=== PATIENT | female | born 1945 | race Caucasian/White ===

== ENCOUNTER → 2018-09-15 15:20 | Outpatient (CLI) | payer MEDICARE, SELFPAY ==
--- NOTE | 2018-09-15 15:26 | RAD_ITS ---
STUDY: X-RAY CHEST REASON FOR EXAM: Female, 73 years old. Anterior chest pain and discomfort. TECHNIQUE: PA and lateral chest. COMPARISON: None. FINDINGS: The heart is not enlarged. Lungs are hyperinflated. No focal infiltrates or effusions. No pneumothorax. Degenerative changes of the thoracic spine. Normal visualized thoracic spine. Normal visualized ribs, clavicles, and shoulders. There is no demonstrated abnormality of the visualized soft tissue structures of the upper abdomen. RAD/Chest PA and Lateral IMPRESSION: No acute cardiopulmonary disease. COPD. Electronically Signed: Nehemias Garcia MD at 8:00 EST , Service support ,
== END ==
PROVIDERS: Family Provider Nurse Practitioner; PCP Nurse Practitioner; Referring Provider Nurse Practitioner; Visit Provider Nurse Practitioner
DX: R07.89 Other chest pain (principal)
CPT/HCPCS: 71046

== ENCOUNTER → 2019-08-07 | Outpatient (CLI) | payer MEDICARE, SELFPAY ==
--- NOTE | 2019-08-07 14:56 | BI_ITS ---
MAMMOGRAPHY - BILATERAL SCREENING REASON FOR EXAM: Female, 74 years old. Routine annual screening examination. PERTINENT HISTORY: Non-contributory. TECHNIQUE: Digital bilateral breast andreina (3D mammographic acquisition) in the CC and MLO projections. 2-D mediolateral oblique (MLO) and craniocaudad (CC) views of both breasts were obtained. CAD: Full Field Digital Mammography with Computer Added Detection was performed. COMPARISON: Comparison is made with prior examination dated November 06, 2016. FINDINGS: Breast Composition: There are scattered areas of fibroglandular density. There are no dominant masses or suspicious calcifications. No other significant abnormalities are identified. There has been no significant change since the prior study. BI/SCREEN MAMM (CAD) W/ANDREINA BILAT IMPRESSION: Stable bilateral screening mammogram. Yearly follow-up mammogram recommended. (A) ASSESSMENT CATEGORY: BIRADS Category 1: Negative. A letter regarding these results will be sent to the patient by the facility within 30 days. Approximately 10% of breast cancers are not detected by mammography. A normal mammogram should not delay biopsy of a clinically suspicious abnormality. [id number] Electronically Signed: Darien Gatica, at 10:33 EDT , Service support ,
== END | disposition home or self-care (01) ==
LOC: OPBI 14:55
PROVIDERS: Family Provider Nurse Practitioner; PCP Nurse Practitioner; Referring Provider Nurse Practitioner; Visit Provider Nurse Practitioner
DX: Z12.31 Encounter for screening mammogram for malignant neoplasm of breast (principal)
CPT/HCPCS: 77063; 77067

== ENCOUNTER → 2020-05-24 11:46 | Outpatient (CLI) | payer MEDICARE, SELFPAY ==
--- NOTE | 2020-05-24 11:58 | BD_ITS ---
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 COMPARISON: Comparison is made with prior study dated November 06, 2016. FINDINGS: Lumbar Spine (L1-L4): g/cm2 (0.843) / T-score (-2.7) / Z-score (-1.0) Findings are suggestive of osteoporosis with a high fracture risk. Left Femur Total: g/cm2 (0.630) / T-score (-2.9) / Z-score (-1.3) Left Femoral Neck: g/cm2 (0.630) / T-score (-2.9) / Z-score (-1.1) Right Femur Total: g/cm2 (0.616) / T-score (-3.1) / Z-score (-1.4) Right Femoral Neck: g/cm2 (0.582) / T-score (-3.3) / Z-score (-1.4) The T-Scores on the most recent prior examination were: Lumbar Spine (L1-L4): There has been worsening of bone density since the previous examination. Left Femur Total: which represents a worsening of 5.6%. Right Femur Total: which represents a worsening of 4.8%. BD/Dexa Bone Density Study IMPRESSION: The patient is considered osteoporotic as outlined below according to World Bobby Organization (WHO) criteria with a high fracture risk. There has been worsening of bone density since the previous examination. Reference Information: The T-score is the number of standard deviations above or below the standard which is normal for young adults at their peak bone mineral density. The World Health Organization (WHO) interprets the T-scores as follows: Above -1 Normal bone density Between -1 and -2.5 Osteopenia Equal to / or below -2.5 Osteoporosis As a practical clinical guideline, osteopenia may be graded as follows: Mild -1 through -1.5 Moderate -1.6 through -2.0 Severe -2.1 through -2.4 The Z-score is the number of standard deviations above or below age-matched controls. A Z-score of less than -1.5 would be considered abnormal. References: 1. NIH Osteoporosis and Related Bone Diseases http://www.osteo.org 2. International Society for Clinical Densitometry http://www.iscd.org 3. National Osteoporosis Foundation http://www.nof.org Electronically Signed: aDrien Gatica, at 15:50 EDT , Service support ,
== END ==
PROVIDERS: PCP Nurse Practitioner; Referring Provider Nurse Practitioner; Visit Provider Nurse Practitioner
DX: M81.0 Age-related osteoporosis without current pathological fracture (principal)
CPT/HCPCS: 77080

== ENCOUNTER 2021-01-17 15:19 | Outpatient (RCR) | payer MEDICARE, SELFPAY ==
[2017-10-04 16:49] VITALS: BMI 29.8
[2021-01-17] MEDS: COVID-19 VACC, MRNA(PFIZER)/PF 30 MCG/0.3 ML SYRINGE IM (13:58)
[2021-02-07] MEDS: COVID-19 VACC, MRNA(PFIZER)/PF 30 MCG/0.3 ML SYRINGE IM (14:03)
== END 2021-04-18 23:59 ==
LOC: IMMUN 15:19
PROVIDERS: PCP Nurse Practitioner; Visit Provider Family Medicine
DX: Z23 Encounter for immunization (principal)
CPT/HCPCS: 0001A; 0002A; 91300

== ENCOUNTER 2021-03-27 13:30 | Outpatient (RCR) | payer MEDICARE, SELFPAY ==
--- NOTE | 2021-02-10 13:17 | HP.PTEVAL ---
Patient's Visit Information KENNY VILLASENOR is a 75 year old F referred to Physical Therapy by Tanya Garcia NP-C with a diagnosis of SHOULDER PAIN,NECK PAIN,PRONOUNCED LORDOSIS. Date of Evaluation: 02/10/21 Physical Therapist: Leon Palacios, PT, Cert MDT, OCS - Visit Plan Frequency: 2x /Week Duration: 4 Weeks Plan: PT INTERVENTIONS POSTURAL FLEXABLITY/STRENGTHENING,CERVICAL ROM,SHOULDER ROM AND MODALTIES PRN - Subjective This 75 y/o female presents to physical therapy shoulder and neck pain. Patient has had these symptoms since last January 2020. Loccated bilateral shoulder pain and stiffness neck. Seen RN INTERNAL MEDICINE recommended PT ,MEDS and did x-rays. Aggraveting factors in morning ,lifting [place] ,self hygine. Alleviating factors better wih MEDS. Denies parathesia/tingling. Denies tinnutis/nausea/YAN.Symptoms affects sleeping. Patient has no related symptoms with turning cervical spine Patient symptoms affects QOL and ADLS'.Patient goals to decrease pain. SOCIAL: . VOCATION: not working - Pain Bilateral Shoulder Pain Intensity (Out of 10): 4 Pain Intensity Range: 10 Comment: 07/21 wrstr - Objective POSTURE: rounded shoulders head foward ,MOD thoracic kyphosis. NEURO: REMORS,denies parathesia/tingling,reflexes 1/3 C5-6-7. PALPATION: unremarkable. CERVICAL ROM: flexion min loss,extension severe loss,lateral flexion severe/mod and rotation mod loss. AROM SHOULDER: flexion bilateral 80 degrees,abduction 70 degrees,ER 80 degrees,IR reach to pelvis - Special Tests C/S Radiculapathy - Left Upper limb tension test: Negative C/S Radiculapathy - Right Upper limb tension test: Negative C/S Radiculapathy - Left Spurlings: Negative C/S Radiculapathy - Right Spurlings: Negative C/S Radiculapathy - Left Cervical distraction: Negative C/S Radiculapathy - Right Cervical distraction: Negative Sharp Mary Ann: Negative Vertebral Artery Test: Negative Alar Ligament Test: Negative R Shoulder External Rotation Lag Test - RC Tear: Negative R Shoulder Supine Impingement Test - RC Tear: Negative R Shoulder Lift Off Test - Subscapular Tear: Negative R Shoulder Drop Sign - IS Test: Negative R Shoulder Empty Can - SS: Negative R Shoulder Belly Press - SupScap: Negative R Shoulder Neer - Impingement: Positive R Shoulder Eddy Andre - Impingement: Positive L Shoulder External Rotation Lag Test - RC Tear: Negative L Shoulder Empty Can - SS: Negative L Shoulder Belly Press - SupScap: Negative L Shoulder Neer - Impingement: Positive L Shoulder Eddy Andre - Impingement: Positive L Shoulder Shrug Sign - OA/Adhesive Capsulitis: Positive - Goals Goal 1:: Patient to be I with HEP Goal Time Frame: 4-6 Weeks Goal 2:: Patient to increase ROM shoulder by 5-10 degrees to improve function Goal Time Frame: 4-6 Weeks Goal 3:: Patient imprve cervical ROM for function of recovery Goal Time Frame: 4-6 Weeks Goal 4:: Patient decrease shoulder pain by 50 % or > to improve function Goal Time Frame: 4-6 Weeks Goal 5:: Patient to improve quick dash by 5 points or > to improve function Goal Time Frame: 4-6 Weeks - Rehabilitation Potential Physical Therapy Diagnosis: This patient has bilateral shoulder pain with decrease ROM shoulder from mod thoracic kyphosis ,pain,poor posture and impingement from these deficits thus will need benifit from skilled PT Rehabilitation Potential: Good - Anticipated Interventions Patient/Client Instruction: Educate patient on: Condition, Plan of Care For the Purpose of:: To decrease pain, To increase ROM, To improve muscle performance and motor function, To improve ability of physical actions for home/community/work/leisure, To improve health of tissue, To decrease soft tissue restriction, To increase flexibility/ROM, To improve ability to perform tasks related to life management Therapeutic Exercise to Include: Strength training, Postural training, Flexibilty training, Active ROM, Scapular Strength/Stabilization Comment: SHOULDERS For the Purpose of:: To decrease pain, To increase ROM, To improve muscle performance and motor function, To improve ability to perform ADL's, To increase tolerance to activity/condition/position, To improve performance and independence with ADL's, To improve ability of physical actions for home/community/work/leisure, To improve health of tissue, To decrease soft tissue restriction, To increase flexibility/ROM, To improve ability to perform tasks related to life management TENS: Yes IF ES: Yes Cryotherapy (ice pack, ice massage): Yes Thermo therapy (hot pack): Yes Ultrasound (thermal/non thermal): Yes For the Purpose of:: To decrease pain, To increase ROM, To improve health of tissue, To decrease soft tissue restriction Thank you for the opportunity to evaluate your patient. For Medicare and Medicare HMO plans, please review the plan of care and approve it. It will need to be FAXED BACK to us at [phone] for Medicare purposes. For Medicare only, by signing this I certify the plan of care. Please let me know if there are questions or concerns regarding this plan of care. Physician Signature: Date:
--- NOTE | 2021-03-27 13:34 | HP.PTDCSUM_ITS ---
It has been my pleasure to treat KENNY VILLASENOR referred by Tanya Garcia, PUNCH MACHINE OPERATOR-C, with the diagnosis of SHOULDER PAIN,NECK PAIN,PRONOUNCED LORDOSIS for a total of 6 visit(s). Discharge Date: 03/27/21 Please see the following information for a summary of their discharge status. Subjective: Neck pain is gone, shoulder ROM much better. Shouldrs still hurt some days if sleeps wrong from side to side. Activities pretty normal. Will cotninue to use bands at home and will get 23 weights. [place] doctor next Saturday. Bilateral Shoulder Pain Intensity (Out of 10): 0 % Improvement: 99 Objective/Function: cervical 75 L rotation and 60 r rotation adn 55 ext, no pain. shoulders elevation 140 L and 132 R, normal exteranal rotationa nd symmetrical. IR symmetrical also. Stegth UE symmetrical and 4-. Pt doing much better and progressing nicely and feels like she can take it from here with HEP Goal 1:: Patient to be I with HEP Goal Progress: Goal Met Goal 2:: Patient to increase ROM shoulder by 5-10 degrees to improve function Goal Progress: Goal Met Goal 3:: Patient imprve cervical ROM for function of recovery Goal Progress: Goal Met Goal 4:: Patient decrease shoulder pain by 50 % or > to improve function Goal Progress: Goal Met Goal 5:: Patient to improve quick dash by 5 points or > to improve function Goal Progress: Goal Met Plan: d/c If there are questions or concerns regarding this patient's physical therapy, please feel free to call me at [phone]. Thank you for the referral of this patient. Sincerely, Isaac Elizabeth, DPT, OCS, CSCS
== END 2021-03-27 19:00 | disposition home or self-care (01) ==
LOC: PT 13:30
PROVIDERS: PCP Nurse Practitioner; Referring Provider Nurse Practitioner; Visit Provider Nurse Practitioner
DX: M40.50 Lordosis, unspecified, site unspecified (principal); M25.511 Pain in right shoulder; M54.2 Cervicalgia
CPT/HCPCS: 97110; 97162; 97164

== ENCOUNTER 2022-03-13 03:00 | Inpatient (IN) | payer MEDICARE, SELFPAY ==
[2022-03-13] VITALS (16 sets, daily range): BP systolic 108–167; BP diastolic 55–97; PULSE 69–102; RESP 16–18; TEMP 36.1–37.3; O2SAT 94–100; BMI 28.5; BMI 23.8
--- NOTE | 2022-03-13 03:18 | EKG12_ITS ---
Test Reason : DYSRHYTHMIA Blood Pressure : / mmHG Vent. Rate : 070 BPM Atrial Rate : 070 BPM P-R Int : 202 ms QRS Dur : 072 ms QT Int : 446 ms P-R-T Axes : 068 013 071 degrees QTc Int : 481 ms Normal sinus rhythm Normal ECG Confirmed by HIGINIO CARDENAS, SHAD ([id number]), photo editor MARISSA TARIQ ([id number]) on 03/14/2022 9:44:55 AM Referred By: JACQUELINE Confirmed By:SHAD SYLVESTER MD
--- NOTE | 2022-03-13 03:18 | RAD_ITS ---
STUDY: X-RAY CHEST REASON FOR EXAM: Female, 76 years old. preop TECHNIQUE: COMPARISON: None. FINDINGS: The lungs are clear and expanded. There is no demonstrated pleural abnormality. Normal size heart. Normal mediastinum and ke. Normal visualized pulmonary arteries. Normal visualized aortic arch and descending thoracic aorta. Normal visualized thoracic spine. Normal visualized ribs, clavicles, and shoulders. There is no demonstrated abnormality of the visualized soft tissue structures of the upper abdomen. RAD/Chest 1 View (Portable) IMPRESSION: Normal x-ray examination of the chest. Electronically Signed: Jeremie Lund MD at 4:33 EDT ,
--- NOTE | 2022-03-13 03:18 | RAD_ITS ---
STUDY: X-RAY - LEFT SHOULDER REASON FOR EXAM: Female, 76 years old. Trauma TECHNIQUE: 3 view(s) of the shoulder. COMPARISON: Comparison is made with prior study dated 01/13/2021. FINDINGS: There is mild degenerative arthrosis of the glenohumeral articulation. Normal acromioclavicular joint. Normal acromion. There is nondisplaced fracture through the subcapital region of the left humerus with cephalic migration of the distal fracture fragment. Soft tissue swelling. Normal visualized pulmonary apex. RAD/Shoulder min 2 Views IMPRESSION: Transverse fracture through the subcapital region of the proximal left humerus with cephalic migration of the distal fracture fragment. Electronically Signed: Darien Gatica MD at 9:15 EDT ,
--- NOTE | 2022-03-13 03:18 | CT_ITS ---
STUDY: CT BRAIN WITHOUT CONTRAST REASON FOR EXAM: Female, 76 years old. fall RADIATION DOSAGE (If Supplied By Facility): CTDIvol = ( 44.99 ) mGy, DLP = ( 846.73 ) mGycm TECHNIQUE: Transaxial CT imaging of the brain was performed without administration of intravenous contrast material. Individualized dose optimization techniques were used for this CT. COMPARISON: No relevant priors. FINDINGS: Normal soft tissue structures. Normal calvarium. Normal size ventricles and extra-axial spaces for the patient''s age. Normal white matter tracts of the cerebral hemispheres. Normal basal ganglia and thalami. Normal brainstem. Normal cerebellum. There is no intracranial hemorrhage. There are no findings of an acute ischemic infarction. Normal visualized paranasal sinuses. CT/Brain/Head without Contrast IMPRESSION: Normal unenhanced CT scan of the brain. Electronically Signed: Jeremie Lund MD at 4:23 EDT ,
--- NOTE | 2022-03-13 03:18 | RAD_ITS ---
STUDY: X-RAY - LEFT WRIST REASON FOR EXAM: Female, 76 years old. trauma TECHNIQUE: 3 view(s) of the wrist were obtained. COMPARISON: None. FINDINGS: There is chronic fracture of the distal radius with the fracture line entering the articular surface. There is a fragment of the articular surface measuring 1.2 cm. This is off from the main portion of the radius. There is a chip fracture of the ulnar styloid process. Normal visualized distal radius and ulna. Normal radiocarpal articulation. Normal distal radioulnar articulation. Normal carpal bones. Normal carpal articulations. Normal carpometacarpal articulation of the thumb. Normal second through fifth carpometacarpal articulations. Normal visualized metacarpal bones. The soft tissue structures are unremarkable. RAD/Wrist min 3 Views IMPRESSION: Fracture of the distal radius with intra-articular extension. Small chip fracture of the ulnar styloid process. Electronically Signed: Jeremie Lund MD at 4:50 EDT ,
--- NOTE | 2022-03-13 03:18 | RAD_ITS ---
STUDY: X-RAY - PELVIS AND LEFT HIP REASON FOR EXAM: Female, 76 years old. trauma TECHNIQUE: 3 views of the pelvis and hip. COMPARISON: None. FINDINGS: There is a non-specific bowel gas pattern. Normal visualized soft tissue structures. Normal bilateral iliac wings, sacroiliac joints and visualized sacrum. Normal bilateral superior and inferior pubic rami. Normal pubic symphysis. Normal bilateral ischial tuberosities. Normal visualized femoral head there is an intertrochanteric fracture of the left hip. Normal hip joint. RAD/HIP, UNI W/ Pelvis 2-3 Views IMPRESSION: Intertrochanteric fracture of the left hip. Electronically Signed: Jeremie Lund MD at 6:19 EDT ,
--- NOTE | 2022-03-13 03:21 | ED.VIS.FALL ---
HPI HPI - Fall History of Present Illness Chief Complaint: Fall Narrative Narrative: Patient sustained a mechanical fall about a half an hour ago, she tripped in her shoelaces. She did hit the left side of her head, her shoulder and left wrist hurt, her main complaint is left hip pain. She was brought in to the emergency department by paramedics. No loss consciousness, she denies any chest injury. She has no neck pain or back pain. [facility] Medical History Hypertension Hypothyroidism Osteoporosis Home Medications levothyroxine 75 mcg PO MOTUTHFRSA 05/31/14 [History Last Taken Unknown] lisinopril 2.5 mg PO DAILY 02/02/17 [History Last Taken Unknown] acetaminophen-codeine 1 - 2 tab PO Q6H PRN #20 tablet 10/04/17 [Rx Last Taken Unknown] diltiazem HCl [Cardizem] 120 mg PO BID 10/04/17 [History Last Taken Unknown] Allergy/AdvReac Type Severity Reaction Status Date / Time naproxen sodium [From Aleve] Allergy WENT OUT Verified 03/13/22 03:05 COLD Penicillins Allergy Rash Verified 03/13/22 03:05 Social History Smoking Status: Current every day smoker tobacco type: e-cigarettes ROS ROS ED ROS Narrative Past medical history: Reviewed, significant for hypertension and hypothyroidism Medications: Reviewed Social history: Noncontributory Review of systems General: Head injury, no loss of consciousness HEENT: No facial injury Neck: No neck pain Cardiovascular: Patient denies any chest pain or palpitations Chest wall: No chest wall contusions Respiratory: There is no shortness of breath GI: There is no nausea vomiting diarrhea or abdominal pain, no abdominal wall contusions Skin: No lacerations or abrasions Neurological: Patient has no memory loss, confusion, or any focal weakness Psychiatric: No recent behavioral changes Back: No back pain, no problems with ambulation Musculoskeletal: Left wrist, left shoulder, left hip injury All other systems are reviewed and normal EXAM Physical Exam Narrative Exam Narrative: Physical exam Vitals reviewed General: Patient appears uncomfortable HEENT: No facial injury Head: Left temporal tenderness but there is no ecchymoses, no contusion. No hematoma. Eyes: Extraocular movements intact Neck: No C-spine tenderness with full range of motion Heart: Regular rate normal pulses Chest wall: No chest wall pain Lungs clear lungs bilaterally with normal inspiration and expiration without tachypnea GI: Abdomen is soft and nontender there is no mass no guarding no abdominal wall contusion : Stable pelvis Musculoskeletal: Patient has tenderness over the left wrist, mostly distal radius region, no obvious deformity. She is got left shoulder pain with no deformity, her left hip is shortened and externally rotated quite painful but even attempt to logroll. Neurovascularly intact distally. Skin: No abrasions or laceration Neurological: Patient is alert and oriented with no focal deficits Const Vital Signs: 03/13/22 03:00 03/13/22 03:07 Temperature 97.3 F L Temperature Source Temporal Pulse Rate 69 Respiratory Rate 18 Respiratory Effort Normal Non-Labored Respiratory Depth Normal Respiratory Pattern Normal Pulse Ox 99 Oxygen Delivery Method Room Air Room Air MDM MDM MDM Narrative Medical decision making narrative: Patient has a proximal humerus fracture, distal radius fracture, hip fracture, I called orthopedics patient will be admitted to medicine. I splinted the Colles' fracture, I talked to Ortho it is likely that she may need to go to the OR today therefore I will make her n.p.o. Lab Data Labs: Laboratory Results - last 24 hr 03/13/22 03/13/22 03:14 03:14 WBC 9.3 RBC 4.28 Hgb 13.0 Hct 38.7 MCV 90.4 MCH 30.4 MCHC 33.6 RDW Std Deviation 41.5 RDW Coeff of Marcela 12.6 Plt Count 327 MPV 10.1 Immature Gran % (Auto) 0.200 Neut % (Auto) 53.4 Lymph % (Auto) 38.9 Caroline % (Auto) 5.8 Eos % (Auto) 1.3 Baso % (Auto) 0.4 Absolute Neuts (auto) 5.0 Absolute Lymphs (auto) 3.62 Nucleated RBC % 0 Sodium 136 Potassium 3.9 Chloride 101 Carbon Dioxide 26.0 Anion Gap 9 BUN 11 Creatinine 0.87 Estim Creat Clear Calc 44.19 Est GFR (MDRD) Af Amer 82 Est GFR (MDRD) Non-Af 68 BUN/Creatinine Ratio 12.7 Glucose 138 H Calcium 8.9 Total Bilirubin 0.30 AST 16 ALT 18 Alkaline Phosphatase 89 Total Protein 7.6 Albumin 3.6 Globulin 4.0 Albumin/Globulin Ratio 0.9 Radiography Diagnostic Testing: X-ray hip read by me shows an intertrochanteric fracture with displacement X-ray wrist read by me shows a distal radius fracture without significant loss of height or dorsal angulation X-ray shoulder read by me shows a proximal humerus fracture without displacement X-ray chest read by me as normal EKG Initial EKG: Comments: Normal sinus rhythm with a rate of 70. Normal [place] and QTc intervals. Nonspecific ST changes in the lateral precordial leads. Otherwise normal EKG. Interpreted by emergency doctor Procedures Upper Extremity Splints Upper Extremity Splint: Orthoglass and - (Anterior posterior splint) Splint Fabrication: Pre-fabricated Location: Left Discharge Plan Triage Chief Complaint: Fall ED Provider: Pedro Hassan Dx/Rx/DC Orders Clinical Impression: Closed hip fracture, Colles' fracture, Fracture of proximal end of humerus, Fall Prescriptions: No Action levothyroxine 25 MCG tablet 75 mcg PO MOTUTHFRSA RF: 0 lisinopril 2.5 MG tablet 2.5 mg PO DAILY RF: 0 diltiazem HCl [Cardizem] 120 MG tablet 120 mg PO BID RF: 0 acetaminophen-codeine 1 TABLET tablet 1 - 2 tab PO Q6H PRN (Reason: Pain) Qty: 20 RF: 0 Primary Care Provider: Tanya Garcia NP Referrals: Tanya Garcia NP, GAS USAGE METER CLERK-C [Primary Care Provider] - Disposition Disposition: Acute Care Hospital [facility]
[2022-03-13] MEDS: Morphine 2 MG/ML Syringe IV (03:25)
[2022-03-13] MEDS: Ondansetron 4 MG/2 ML Vial IV (03:25)
[2022-03-13 03:47] LABS: Absolute Lymphocyte Count 3.62 X10^3/uL (0.83-4.51); Basophil# 0.04 X10^3/uL; Basophil% 0.4 % (0-1); Eosinophil# 0.12 X10^3/uL; Eosinophils% 1.3 % (0-5); Hematocrit 38.7 % (37-47); Lymphocyte # 3.62 X10^3/ul (0.83-4.51); Lymphocyte % 38.9 % (19-41); Mean Corp Hgb Conc 33.6 g/dL (32-36); Mean Corpuscular Hgb 30.4 pg (27.0-32.0); Mean Corpuscular Volume 90.4 fL (81-99); Mean Platelet Vol. 10.1 fl (6.2-12.0); Monocyte# 0.54 X10^3/uL; Monocyte% 5.8 % (0-10); NRBC Flagged by Analyzer 0 % (0-5); Neutrophil # 4.97 X10^3/uL (2.7-7.7); Neutrophil % 53.4 % (47-70); Platelet Count 327 K/mm3 (150-450); RBC Distribution Width CV 12.6 % (11.6-14.6); RBC Distribution Width SD 41.5 fl (35.1-43.9); Red Blood Count 4.28 M/mm3 (4.2-5.4); White Blood Count 9.3 K/mm3 (4.4-11.0)
[2022-03-13 03:59] LABS: ALB/GLOB Ratio 0.9 RATIO (0.9-2.4); AST(SGOT) 16 U/L (15-37); Alanine Aminotransfer ALT/SGPT 18 U/L (13-56); Albumin, Serum 3.6 g/dL (3.2-5.0); Alkaline Phosphatase 89 U/L (45-117); Anion Gap 9 (5-15); BUN 11 mg/dL (7-18); BUN/Creat Ratio 12.7 RATIO (10-20); Calcium,Total 8.9 mg/dL (8.5-10.1); Chloride 101 mmol/L (98-107); Creatinine, Serum 0.87 mg/dL (0.55-1.02); EST Glomerular Filtration Rate 68 mL/min (>60); Est Glom Filt Rate - Afr Amer 82 mL/min (>60); Estimated Creatinine Clearance 44.19 ml/min; Glucose 138 mg/dL (74-106); Potassium 3.9 mmol/L (3.5-5.1); Protein, Total 7.6 g/dL (6.4-8.2); Sodium Level 136 mmol/L (136-145)
[2022-03-13] MEDS: Morphine 4 MG/ML Syringe IV (04:19)
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
[2022-03-13] MEDS: 0.9% Normal Saline 1,000 ML 75 ML IV ×2 (05:30→21:54)
[2022-03-13 07:28] LABS: Absolute Lymphocyte Count 0.83 X10^3/uL (0.83-4.51); Absolute Neutrophil Count 9.3 X10^3/uL (2.0-7.7); Basophil# 0.03 X10^3/uL; Basophil% 0.3 % (0-1); Eosinophil# 0.01 X10^3/uL; Eosinophils% 0.1 % (0-5); Hematocrit 37.5 % (37-47); Hemoglobin 12.2 g/dL (12.0-15.0); Lymphocyte # 0.83 X10^3/ul (0.83-4.51); Lymphocyte % 7.7 % (19-41); Mean Corp Hgb Conc 32.5 g/dL (32-36); Mean Corpuscular Hgb 30.4 pg (27.0-32.0); Mean Corpuscular Volume 93.5 fL (81-99); Mean Platelet Vol. 10.1 fl (6.2-12.0); Monocyte# 0.56 X10^3/uL; Monocyte% 5.2 % (0-10); NRBC Flagged by Analyzer 0 % (0-5); Neutrophil # 9.31 X10^3/uL (2.7-7.7); Neutrophil % 86.2 % (47-70); Platelet Count 262 K/mm3 (150-450); RBC Distribution Width CV 12.5 % (11.6-14.6); RBC Distribution Width SD 43.4 fl (35.1-43.9); Red Blood Count 4.01 M/mm3 (4.2-5.4); White Blood Count 10.8 K/mm3 (4.4-11.0)
[2022-03-13 07:52] LABS: ALB/GLOB Ratio 0.8 RATIO (0.9-2.4); AST(SGOT) 580 U/L (15-37); Alanine Aminotransfer ALT/SGPT 299 U/L (13-56); Albumin, Serum 3.1 g/dL (3.2-5.0); Alkaline Phosphatase 120 U/L (45-117); Anion Gap 7 (5-15); BUN 11 mg/dL (7-18); BUN/Creat Ratio 11.4 RATIO (10-20); Calcium,Total 8.7 mg/dL (8.5-10.1); Chloride 104 mmol/L (98-107); Creatinine, Serum 0.96 mg/dL (0.55-1.02); EST Glomerular Filtration Rate 60 mL/min (>60); Est Glom Filt Rate - Afr Amer 72 mL/min (>60); Estimated Creatinine Clearance 40.05 ml/min; Globulin 3.8 g/dL (2.2-4.2); Glucose 168 mg/dL (74-106); Potassium 4.4 mmol/L (3.5-5.1); Protein, Total 6.9 g/dL (6.4-8.2); Sodium Level 136 mmol/L (136-145)
[2022-03-13 08:00] LABS: International Normalized Ratio 1.1; Prothrombin Time (Protime)PT. 13.5 SECONDS (11.7-14.9)
[2022-03-13] MEDS: 0.9% Saline Lock 10 ML Syringe IV ×2 (08:02→13:48)
[2022-03-13] MEDS: HYDROmorphone 0.5 MG/0.5 ML SYRINGE IV (08:02)
--- NOTE | 2022-03-13 08:04 | CONS.ORTHO ---
HPI Consult Data Date of Consult: 03/13/22 HPI Narrative HPI Narrative: KENNY VILLASENOR, is a 76 F who presents after mechanical fall around 0200 this morning after she got up out of bed when her [place] was barking. She reports that she tripped over something while she was walking causing her to fall onto her left side. She states she did hit her head on an armrest of a leather chair on the way down. She noted immediate pain in her left hip as well as left shoulder and left wrist. She denies any numbness or tingling. Denies any loss of consciousness, syncopal or presyncopal symptoms, neck pain. She states she typically uses a front wheeled walker at home to ambulate. She denies any antecedent left hip, groin pain. Reports bilateral knee osteoarthritis history. She denies any antecedent left wrist or left shoulder pain. Patient lives at home with her daughter who is working cage shift manager at time of injury, but arrived home approximately 15 minutes after the fall to find her mother on the ground. Patient was brought to [facility] and evaluated in the emergency department. CT scan of her brain was benign. X-rays of the left hip revealed a left intertrochanteric proximal femur fracture. Left wrist x-rays revealed a displaced, intra-articular distal radius fracture. Left shoulder films revealed a four-part proximal humerus fracture. She was subsequently admitted to the hospital by the hospitalist service. Orthopedics was subsequently consulted for surgical recommendations. [facility] Medical History Hypertension Hypothyroidism Osteoporosis Home Medications levothyroxine 75 mcg PO MOTUTHFRSA 05/31/14 [History Last Taken Unknown] lisinopril 2.5 mg PO DAILY 02/02/17 [History Last Taken Unknown] acetaminophen-codeine 1 - 2 tab PO Q6H PRN #20 tablet 10/04/17 [Rx Last Taken Unknown] diltiazem HCl [Cardizem] 120 mg PO BID 10/04/17 [History Last Taken Unknown] Allergy/AdvReac Type Severity Reaction Status Date / Time naproxen sodium [From Aleve] Allergy WENT OUT Verified 03/13/22 03:05 COLD Penicillins Allergy Rash Verified 03/13/22 03:05 Social History Smoking Status: Current every day smoker tobacco type: e-cigarettes ROS ROS Narrative 12 point review of systems obtained, negative unless otherwise noted in HPI. Vital Signs Vital Signs Vital Signs: 03/13/22 03:00 03/13/22 03:07 03/13/22 04:22 Temperature 97.3 F L Temperature Source Temporal Pulse Rate 69 69 Pulse Strength Respiratory Rate 18 18 Respiratory Effort Normal Non-Labored Respiratory Depth Normal Respiratory Pattern Normal Blood Pressure 131/56 H Blood Pressure Mean 81 Blood Pressure Source Blood Pressure Position Blood Pressure Location Pulse Ox 99 98 Oxygen Delivery Method Room Air Room Air Room Air 03/13/22 04:51 03/13/22 05:49 03/13/22 06:09 Temperature 98 F 99.0 F Temperature Source Temporal Oral Pulse Rate 77 91 Pulse Strength Respiratory Rate 17 17 Respiratory Effort Normal Non-Labored Respiratory Depth Normal Respiratory Pattern Normal Blood Pressure 140/90 H 146/76 H Blood Pressure Mean 106 99 Blood Pressure Source Monitor Blood Pressure Position Semi-Fowlers Blood Pressure Location Right Arm Pulse Ox 94 100 Oxygen Delivery Method Room Air Room Air Room Air 03/13/22 07:47 03/13/22 07:53 Temperature Temperature Source Pulse Rate Pulse Strength Normal (2+) Respiratory Rate Respiratory Effort Normal Non-Labored Respiratory Depth Normal Respiratory Pattern Normal Blood Pressure Blood Pressure Mean Blood Pressure Source Blood Pressure Position Blood Pressure Location Pulse Ox Oxygen Delivery Method Room Air Weight Weight: 130 lb Body Mass Index (BMI) 23.8 Physical Exam Narrative General -A&Ox3, NAD, appears stated age. Vital signs stable, afebrile. Respiratory -normal work of breathing, no intercostal retractions. CV -pulses regular, brisk capillary refill ?4 limbs. Abdomen-soft, nontender, nondistended. No guarding, rigidity, rebound tenderness. Musculoskeletal/neurologic -full range of motion nontender throughout right upper extremity, right lower extremity with full sensation and strength in all dermatomes and myotomes. No midline cervical tenderness. Left upper extremity-no obvious deformity. Pain with palpation and limited rotation of the left proximal humerus. Axillary nerve function appears intact to sensation and limited firing of the deltoid. Sensation intact to light touch in the left hand median, ulnar, superficial branch radial nerve distributions. Cardinal motions of the left hand are intact. Short arm splint is in place to the left wrist. Elbow is nontender. Left lower extremity-no obvious deformity. Pain with logroll of the left lower extremity. Nontender throughout the left knee femoral shaft, tibial shaft and left foot/ankle. Brisk capillary refill. Sensation intact light touch L3-S1 dermatomes. DF, PF, EHL intact. DP, PT 2+. Pelvis is stable, nontender. Skin is intact without lacerations, abrasions. No ecchymosis noted. Lab / Micro Data Result Diagrams: 03/13/22 07:20 03/13/22 07:20 Labs: Laboratory Results - last 24 hr 03/13/22 03:14: WBC 9.3, RBC 4.28, Hgb 13.0, Hct 38.7, MCV 90.4, MCH 30.4, MCHC 33.6, RDW Std Deviation 41.5, RDW Coeff of Marcela 12.6, Plt Count 327, MPV 10.1, Immature Gran % (Auto) 0.200, Neut % (Auto) 53.4, Lymph % (Auto) 38.9, [place] % (Auto) 5.8, Eos % (Auto) 1.3, Baso % (Auto) 0.4, Absolute Neuts (auto) 5.0, Absolute Lymphs (auto) 3.62, Nucleated RBC % 0 03/13/22 03:14: Sodium 136, Potassium 3.9, Chloride 101, Carbon Dioxide 26.0, Anion Gap 9, BUN 11, Creatinine 0.87, Estim Creat Clear Calc 44.19, Est GFR (MDRD) Af Amer 82, Est GFR (MDRD) Non-Af 68, BUN/Creatinine Ratio 12.7, Glucose 138 H, Calcium 8.9, Total Bilirubin 0.30, AST 16, ALT 18, Alkaline Phosphatase 89, Total Protein 7.6, Albumin 3.6, Globulin 4.0, Albumin/Globulin Ratio 0.9 03/13/22 07:20: WBC 10.8, RBC 4.01 L, Hgb 12.2, Hct 37.5, MCV 93.5, MCH 30.4, MCHC 32.5, RDW Std Deviation 43.4, RDW Coeff of Marcela 12.5, Plt Count 262, MPV 10.1, Immature Gran % (Auto) 0.500, Neut % (Auto) 86.2 H, Lymph % (Auto) 7.7 L, [place] % (Auto) 5.2, Eos % (Auto) 0.1, Baso % (Auto) 0.3, Absolute Neuts (auto) 9.3 H, Absolute Lymphs (auto) 0.83, Nucleated RBC % 0 03/13/22 07:20: PT 13.5, INR 1.1 03/13/22 07:20: Sodium 136, Potassium 4.4, Chloride 104, Carbon Dioxide 25.0, Anion Gap 7, BUN 11, Creatinine 0.96, Estim Creat Clear Calc 40.05, Est GFR (MDRD) Af Amer 72, Est GFR (MDRD) Non-Af 60, BUN/Creatinine Ratio 11.4, Glucose 168 H, Calcium 8.7, Total Bilirubin 0.60, AST 580 H, ALT 299 H, Alkaline Phosphatase 120 H, Total Protein 6.9, Albumin 3.1 L, Globulin 3.8, Albumin/Globulin Ratio 0.8 L Radiology Impression Brain CT 03/13/22 03:18 IMPRESSION: Normal unenhanced CT scan of the brain. Electronically Signed: Jeremie Lund MD at 4:23 EDT Reading Location ID and State: [facility] / [place] Tel , Service support , Chest X-Ray 03/13/22 03:18 IMPRESSION: Normal x-ray examination of the chest. Electronically Signed: Jeremie Lund MD at 4:33 EDT Reading Location ID and State: [facility] / [place] Tel , Service support , Hip/Pelvis X-Ray 03/13/22 03:18 IMPRESSION: Intertrochanteric fracture of the left hip. Electronically Signed: Jeremie Lund MD at 6:19 EDT , Wrist X-Ray 03/13/22 03:18 IMPRESSION: Fracture of the distal radius with intra-articular extension. Small chip fracture of the ulnar styloid process. Electronically Signed: Jeremie Lund MD at 4:50 EDT , Assessment & Plan Assessment/Plan (1) Closed hip fracture: PLAN: Patient sustained a left intertrochanteric proximal femur fracture. -Closed, neurovascularly intact -Recommending surgical intervention in the form of left femur cephalomedullary nailing -I discussed the procedure-its risks, benefits and alternative. Risks include but are not limited to bleeding, infection, loss of life or limb, risk of anesthesia, persistent pain or disability, need for additional surgery, nonunion, malunion, failure of orthopedic hardware, neurovascular injury, DVT or PE. Patient expressed understanding these risks and wished proceed with surgery. -Maintenance IV fluids, clear liquid diet n.p.o. at 4 hours prior to surgery. Plan for surgery later on this afternoon. -Type and screen -2 g Ancef on-call to the OR -Bedrest, heel protectors (2) Colles' fracture: PLAN: Plan for nonoperative management at this time. Dorsal angulation is noted on emergency department films. In hopes to manage nonoperatively definitively, I would recommend closed reduction while patient is under anesthesia for her left hip fracture. We discussed management at length and she agreed to proceed with close reduction of her left wrist at time of left hip surgery. (3) Fracture of proximal end of humerus: PLAN: Plan for initial nonoperative management of the left proximal humerus fracture. Plan for serial x-rays over the coming weeks. We will apply a sling when the patient is able to bear weight on her left hip after surgery. Patient will need a one-sided walker. Anticipate will need placement following surgery due to limited use and nonweightbearing of her left upper extremity. Thank you for this consultation. Please do not hesitate if any questions or concerns arise.
[2022-03-13] MEDS: Senna/Docusate Sodium 1 Tablet 2 TABLET PO ×2 (08:59→21:55)
[2022-03-13] MEDS: Acetaminophen 500 MG Tablet 1000 MG PO ×3 (08:59→21:55)
[2022-03-13 09:56] LABS: ALB/GLOB Ratio 0.9 RATIO (0.9-2.4); AST(SGOT) 838 U/L (15-37); Alanine Aminotransfer ALT/SGPT 478 U/L (13-56); Albumin, Serum 3.1 g/dL (3.2-5.0); Alkaline Phosphatase 121 U/L (45-117); Anion Gap 8 (5-15); BUN 12 mg/dL (7-18); BUN/Creat Ratio 13.4 RATIO (10-20); Calcium,Total 8.3 mg/dL (8.5-10.1); Chloride 102 mmol/L (98-107); Creatinine, Serum 0.89 mg/dL (0.55-1.02); EST Glomerular Filtration Rate 65 mL/min (>60); Est Glom Filt Rate - Afr Amer 79 mL/min (>60); Globulin 3.6 g/dL (2.2-4.2); Glucose 154 mg/dL (74-106); Potassium 4.4 mmol/L (3.5-5.1); Protein, Total 6.7 g/dL (6.4-8.2); Sodium Level 136 mmol/L (136-145)
--- NOTE | 2022-03-13 11:03 | PN.HOSP_ITS ---
Subjective Subjective Patient seen and examined. She had no active complaints and pain was fairly well controlled. She is for surgery by orthopedics later today. Review of systems otherwise negative. Objective Data Objective Data Vital Signs: Vital Signs Temp Pulse Resp BP Pulse Ox 98.6 F 86 16 146/78 H 100 03/13/22 10:00 03/13/22 10:00 03/13/22 10:00 03/13/22 10:00 03/13/22 10:00 Oxygen Delivery Method Room Air Weight: 130 lb Body Mass Index (BMI) 23.8 Lab / Micro Data Result Diagrams: 03/13/22 07:20 03/13/22 08:50 Labs: Laboratory Results - last 24 hr 03/13/22 03:14: WBC 9.3, RBC 4.28, Hgb 13.0, Hct 38.7, MCV 90.4, MCH 30.4, MCHC 33.6, RDW Std Deviation 41.5, RDW Coeff of Marcela 12.6, Plt Count 327, MPV 10.1, Immature Gran % (Auto) 0.200, Neut % (Auto) 53.4, Lymph % (Auto) 38.9, [place] % (Auto) 5.8, Eos % (Auto) 1.3, Baso % (Auto) 0.4, Absolute Neuts (auto) 5.0, Absolute Lymphs (auto) 3.62, Nucleated RBC % 0 03/13/22 03:14: Sodium 136, Potassium 3.9, Chloride 101, Carbon Dioxide 26.0, Anion Gap 9, BUN 11, Creatinine 0.87, Estim Creat Clear Calc 44.19, Est GFR (MDRD) Af Amer 82, Est GFR (MDRD) Non-Af 68, BUN/Creatinine Ratio 12.7, Glucose 138 H, Calcium 8.9, Total Bilirubin 0.30, AST 16, ALT 18, Alkaline Phosphatase 89, Total Protein 7.6, Albumin 3.6, Globulin 4.0, Albumin/Globulin Ratio 0.9 03/13/22 03:14: Blood Type B POSITIVE, Antibody Screen NEGATIVE 03/13/22 07:20: WBC 10.8, RBC 4.01 L, Hgb 12.2, Hct 37.5, MCV 93.5, MCH 30.4, MCHC 32.5, RDW Std Deviation 43.4, RDW Coeff of Marcela 12.5, Plt Count 262, MPV 10.1, Immature Gran % (Auto) 0.500, Neut % (Auto) 86.2 H, Lymph % (Auto) 7.7 L, [place] % (Auto) 5.2, Eos % (Auto) 0.1, Baso % (Auto) 0.3, Absolute Neuts (auto) 9.3 H, Absolute Lymphs (auto) 0.83, Nucleated RBC % 0 03/13/22 07:20: PT 13.5, INR 1.1 03/13/22 07:20: Sodium 136, Potassium 4.4, Chloride 104, Carbon Dioxide 25.0, Anion Gap 7, BUN 11, Creatinine 0.96, Estim Creat Clear Calc 40.05, Est GFR (MDRD) Af Amer 72, Est GFR (MDRD) Non-Af 60, BUN/Creatinine Ratio 11.4, Glucose 168 H, Calcium 8.7, Total Bilirubin 0.60, AST 580 H, ALT 299 H, Alkaline Phosphatase 120 H, Total Protein 6.9, Albumin 3.1 L, Globulin 3.8, Albumin/Gl obulin Ratio 0.8 L 03/13/22 08:50: Sodium 136, Potassium 4.4, Chloride 102, Carbon Dioxide 26.0, Anion Gap 8, BUN 12, Creatinine 0.89, Estim Creat Clear Calc 43.20, Est GFR (MDRD) Af Amer 79, Est GFR (MDRD) Non-Af 65, BUN/Creatinine Ratio 13.4, Glucose 154 H, Calcium 8.3 L, Total Bilirubin 0.70, AST 838 H, ALT 478 H, Alkaline Phosphatase 121 H, Total Protein 6.7, Albumin 3.1 L, Globulin 3.6, Albumin/Globulin Ratio 0.9 Radiography Diagnostic Testing: Radiology Impression Brain CT 03/13/22 03:18 IMPRESSION: Normal unenhanced CT scan of the brain. Electronically Signed: Jeremie Lund MD at 4:23 EDT , Chest X-Ray 03/13/22 03:18 IMPRESSION: Normal x-ray examination of the chest. Electronically Signed: Jeremie Lund MD at 4:33 EDT , Hip/Pelvis X-Ray 03/13/22 03:18 IMPRESSION: Intertrochanteric fracture of the left hip. Electronically Signed: Jeremie Lund MD at 6:19 EDT , Shoulder X-Ray 03/13/22 03:18 IMPRESSION: Transverse fracture through the subcapital region of the proximal left humerus with cephalic migration of the distal fracture fragment. Electronically Signed: Darien Gatica MD at 9:15 EDT , Wrist X-Ray 03/13/22 03:18 IMPRESSION: Fracture of the distal radius with intra-articular extension. Small chip fracture of the ulnar styloid process. Electronically Signed: Jeremie Lund MD at 4:50 EDT Reading Location ID and State: [facility] / [place] Tel , Service support , Physical Exam Const alert, oriented x3 and no apparent distress Exam Limitations: no limitations HEENT head/scalp atraumatic, moist oral mucous membranes and oropharynx normal Head and Scalp: normocephalic Eyes PERRL, EOMs intact bilaterally and conjunctivae normal Neck no lymphadenopathy, supple and no JVD Resp normal respiratory effort, no retractions, no use of accessory muscles and clear to auscultation bilaterally Cardio regular rate, regular rhythm, S1 normal heart sound, S2 normal heart sound and no murmurs GI normal to inspection, nondistended, normoactive bowel sounds, soft to palpation, non-tender and non-distended Extremity Extremity Narrative: LLE shortened and externally rotated, LUE forearm wrapped in bandage Peripheral Pulses: Yes pulses 2+ throughout Skin no rashes or lesions noted Neuro oriented x3 and CN's II-XII intact bilaterally Sensorium / Orientation: awake and alert Psych affect normal Assessment & Plan Assessment/Plan (1) Closed hip fracture: (2) Colles' fracture: (3) Fracture of proximal end of humerus: (4) Fall: PLAN: #Closed left hip fracture due to mechanical fall * orthopedic surgery on board * for surgery later today * on IV dilaudid, PO oxycodone and PO tylenol * PT/OT on board * fall precautions * #Left wrist Colles fracture * also due to mechanical fall * left wrist wrapped up in a splint * orthopedics surgery on board. * #Left proximal humeral fracture due to mechanical fall * for conservative management, per orthopedic surgery * LUE to be placed in a sling * PT/OT on board. * Fall precautions * #Elevated liver enzymes * liver enyzymes have trended up today to a peak of 838; was 16 on admission; AST also up to 478; was 18 on admisison. ALP up to 121 was 89 on admission * patient denies any abdominal pain * hasnt had any hypotension, so it is unlikely to be shock liver * will get gallbladder USG to evaluate prior to surgery * hold all hepatotoxic meds * #Hypertension:on lisinopril and cardizem #hyperlipidemia: on statin DVT prophylaxis: lovenox Charges/Coding Visit Charges Inpatient E&M: 27070 Subs Hosp L3
--- NOTE | 2022-03-13 11:23 | US_ITS ---
STUDY: ABDOMINAL ULTRASOUND - RIGHT UPPER QUADRANT REASON FOR VISIT: Female, 76 years old elevated liver enzymes TECHNIQUE: Ultrasound evaluation of the right upper quadrant was performed with real-time and static alejo-scale imaging. TECHNICAL QUALITY: Adequate. COMPARISON: None. FINDINGS: Liver: The liver measures 15.9 cm. There is normal echogenicity of the liver. The bile ducts are within normal limits. There is hepatic color flow. The direction of portal flow is hepatopetal. There is no demonstrated mass lesion. Gallbladder: The patient is status post cholecystectomy. Common Bile Duct (C.B.D.): The common bile duct measures 10 mm. Pancreas: Normal size of the head, body and tail of the pancreas. There is no demonstrated pancreatic mass or cyst. Right Kidney: Normal size of the right kidney. The right kidney measures 7.9 cm x 3.6 cm x 2.7 cm. Normal renal cortex. The right cortex measures 1.0 cm. There is no demonstrated renal mass or cyst. There is no right hydronephrosis. US/Abdomen Limited IMPRESSION: Normal right upper quadrant ultrasound examination. Electronically Signed: Darien Gatica MD at 12:48 EDT ,
--- NOTE | 2022-03-13 11:25 | CASEMGMT ---
[facility] Face to Face with patient for initial transition planning/care coordination assessment. [facility] introduced self and role at [facility]. Patient lying in bed, alert and oriented, daughter at bedside. Patient willing to participate in assessment and is able to answer all questions appropriately. Care providers, pharmacy, and demographics verified. Patient wishes to discharge to SNF at discharge if necessary. Patient was provided a list of SNF providers including quality and resource use data and consistent with the patient?s preferred geographic region, medical needs, and insurance network. The patient?s preferred provider is TCU. CM to make referral to TCU. Patient states she has no further needs or concerns at this time. CM to follow for discharge planning needs that may arise. 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 Patient states she was independent and able to ambulate stairs prior to current illness. Transportation: self, daughter DME/HHC: Patient states she has cane and walker at home. Patient denies previous HHC or SNF. [facility] called Keisha at TCU to make referral. Per Keisha they are able to accept the patient and will initiate precert after surgery and when patient participates with therapy. NOR[facility] ALBERT updated daughter regarding acceptance, patient out of room for testing. NOR[facility] ALBERT updated SW regarding referral to TCU. Disposition Plan: Patient to discharge to TCU pending precert. Mary CHRISTIANSON, RN, CM
--- NOTE | 2022-03-13 13:50 | NURSING ---
Pt resting in bed, IV fluids paused, IV flushed and VS completed. Pt ready for transport for surgery.
[2022-03-13] MEDS: Lactated Ringers 1,000 ML 15 ML IV (15:00)
--- NOTE | 2022-03-13 15:26 | CHAPLAIN ---
Type of Pastoral Visit __x_ Initial Visit ___ Follow-up Visit ___ On-call Visit ___ General Patient Visit ___ Spiritual Assessment ___ Family Conference ___ Bereavement ___ Rapid Response ___ Code Blue ___ Other (describe below) Pastoral Care Referral From _x__ Patient ___ Family ___ Nurse ___ Physician ___ Police Worker ___ Improvement Intern ___ Other (describe below) Sacrament/Intervention _x__ Active listening ___ Anointing ___ Samaritan ___ Bereavement ___ Communion ___ Sharri exploration ___ ___ Life review _x__ Prayer ___ Reconciliation ___ Sacrament of Sick ___ Supportive presence ___ Wedding ___ Other (describe below) Pastoral Comments patient is to go to surgery soon; pt states that a prayer would be appreciated; otherwise pt gives some details about her fall and broken bones; daughter is with her; no other concerns at this time
--- NOTE | 2022-03-13 16:30 | RAD_ITS ---
STUDY: INTRAOPERATIVE FLUOROSCOPY TECHNIQUE: The examination was performed with referring physician in attendance. Under fluoroscopic observation, fluoroscopic images were obtained. Radiologist was not present for the study. Radiologist did not perform the procedure. This dictation is for documentation of the radiation dosage only. There is no interpretation of the images. TOTAL NUMBER OF IMAGES: 1 COMPARISON: Study done earlier RADIATION DOSE: 0.11 mGy FLUOROSCOPY TIME: 8.5 seconds REASON FOR EXAM: ORIF Female, 76 years old. FINDINGS: Cast in place. There is a closed reduction. RAD/Forearm 2 Views IMPRESSION: Fluoroscopic assistance images were obtained. Dictation for documentation purposes only. Electronically Signed: Devyn Swanson MD at 19:19 EDT ,
[2022-03-13] MEDS: Cefazolin 2 GM in 0.9% Normal Saline 100 ML IV (16:40)
--- NOTE | 2022-03-13 17:00 | RAD_ITS ---
STUDY: INTRAOPERATIVE FLUOROSCOPY TECHNIQUE: The examination was performed with referring physician in attendance. Under fluoroscopic observation, fluoroscopic images were obtained. Radiologist was not present for the study. Radiologist did not perform the procedure. This dictation is for documentation of the radiation dosage only. There is no interpretation of the images. TOTAL NUMBER OF IMAGES: 1 COMPARISON: None RADIATION DOSE: 18.5 mGy FLUOROSCOPY TIME: 98 seconds REASON FOR EXAM: ORIF Female, 76 years old. FINDINGS: Intramedullary juan in place. IM nail in place. RAD/Hip Min 2 Views (Portable) IMPRESSION: Fluoroscopic assistance images were obtained. Dictation for documentation purposes only. Electronically Signed: Devyn Swanson MD at 19:18 EDT ,
--- NOTE | 2022-03-13 17:39 | OP.PCM_ITS ---
Report of Operation Description of Surgical Findings:: Preoperative diagnosis: 1. Left distal radius fracture 2. Left intertrochanteric proximal femur fracture Postoperative diagnosis: 1. Left distal radius fracture 2. Left intertrochanteric proximal femur fracture Procedure: 1. Closed reduction with application of splint left distal radius 2. Treatment of intertrochanteric hip fracture with intramedullary nail left femur Surgeon: Gary Marcus DO Anesthesia: General endotracheal Anesthesiologist: Dr. Baez Complications: None Drains: None Estimated blood loss: 150 cc Urinary output: None recorded IV fluids: 1000 cc crystalloid Specimens: None Surgical implants: [place] Gamma3 Cephalomedullary Nail 125 degree 11 mm x 180 mm left, 10.5 mm x 100 mm lag screw, Interlocking screw 5 mm x 35 mm Surgical indications: This is a 76-year-old female who sustained a ground-level mechanical fall early this morning at her home. She sustained a left intertrochanteric proximal femur fracture as well as a displaced left distal radius fracture and four-part proximal humerus fracture on the left. Distal radius was not in acceptable alignment. I recommend surgical intervention in the form of cephalomedullary nailing of the left femur with a closed reduction of the left wrist and application of splint. I discussed the risks, benefits, alternatives to the procedure with the patient at length. The risks of the surgery included bleeding, infection, loss of life or limb, malunion, nonunion, damage to vital structures, neurovascular injury, failure of orthopedic hardware, need for additional surgery, persistent pain or disability, risk of anesthesia. The patient expressed understanding of these risks and agreed to proceed with surgery. Blood consent was also obtained. Description of procedure: Patient was seen in preoperative holding area. She was identified by name, medical record number, date of . The operative extremities were marked with a surgical marker. We confirmed informed consent with the patient and all questions were answered to her satisfaction. Anesthesia was induced on the patient's hospital bed. Laryngeal mask airway was placed. After the tube was secured, I turned my attention to the left upper extremity. Splint was removed. There is a small skin tear noted over the distal ulna, probing of the skin tear did not elicit significant bleeding and suspicion of open fracture was low. We then performed a timeout with all parties in attendance in agreement with the side, site, operation be performed. 2 g Ancef was administered prior to the incision by anesthesia staff. I proceeded with a closed reduction maneuver to the left wrist with volar translation of the carpus and ulnar deviation. Anatomic reduction was performed and achieved. A well-padded volar and dorsal short arm fiberglass splint was then applied with a three-point mold. A Xeroform dressing was placed over the skin tear. After the splint had cured, patient was transferred to a fracture table with all bony prominences being well-padded. A perineal post was placed to secure the patient on the table. We then applied a ski boot which was well-padded to the operative extremity. The well leg was dropped into extension and secured to the axial post of the fracture table with a pillow and Coban. The left arm was brought across patient's chest with a blanket on her chest. We then performed a closed reduction maneuver with external rotation, traction, internal rotation and adduction. Fluoroscopic images were obtained. Near-anatomic alignment was achieved following the closed reduction. I planned our incision approximately 3 fingerbreadths proximal to the tip of the greater trochanter which was identified on fluoroscopy. Skin was incised sharply with a 10 blade scalpel. Incision was carried deep through the IT band laterally. The greater trochanter was then able to be palpated digitally. I then placed a threaded guidewire just medial to the tip of the greater trochanter and in the central third of it on the lateral. Opening reamer was then placed over top of the guidewire after placement was confirmed on C arm. Fracture appeared stable following reduction. I selected a short nail 18 cm x 11 mm diameter. Nail was assembled on the back table. I delicately placed the nail in the regional airline pilot hole in the trochanter and impacted to an appropriate depth. Rotation was confirmed on the lateral. Drill sleeve was placed through the targeting guide. We drilled the pin for the lag screw at an appropriate position and depth, tip to apex distance less than 25 mm on AP and lateral combined. Depth gauge was used to measure the length of the screw, 100 mm. We then used the cannulated drill to drill to an appropriate depth. Drill was removed, drill pin left in place. Lag screw was placed over top of the drill pin and tightened to an appropriate depth. Setscrew was then placed and tightened, backed off a quarter turn to allow the lag screw to slide. Targeting guide was used to place a bicortical static interlocking screw after incising the lateral skin with a stab incision through the skin and IT band. Isthmus of the femur was drilled bicortically and measured off the drill. Drill was removed and screw was placed by hand with excellent cortical purchase. Final fluoroscopic images were obtained. We irrigated the wounds copiously with normal saline solution. Hemostasis was excellent at this point. We then closed the deeper layers, IT band with 0 Vicryl. Intradermal buried stitches of 2-0 Vicryl were utilized and skin finally reapproximated with skin waqas. Sterile compression dressing of Xeroform, 4 x 4's, and Tegaderm was applied. Patient tolerated procedure well without complication. She was transferred back to her hospital bed and subsequently to PACU in stable condition. Intraoperative medications: 2 g Ancef IV Post Operative Plan: Weightbearing: Weightbearing as tolerated left lower extremity with a walker. Nonweightbearing left wrist and left shoulder. Antibiotics: Ancef 2g x 3 doses postoperatively, 1 dose given preoperatively DVT Prophylaxis: Lovenox to start tomorrow AM Lane: Per primary Dressing: Dry sterile dressing changes daily and as needed for saturation X-Rays: 2 weeks postop in the office Follow-up: 2 weeks post-operatively with me in the office
[2022-03-14] MEDS: Cefazolin 2 GM in 0.9% Normal Saline 100 ML IV ×3 (00:30→16:32)
[2022-03-14] MEDS: 0.9% Normal Saline 1,000 ML 75 ML IV (00:31)
[2022-03-14] MEDS: oxyCODONE 5 MG Tablet PO ×3 (00:38→20:22)
[2022-03-14 03:40] VITALS: BP 103/79; PULSE 102; RESP 16; TEMP 36.7; O2SAT 97
[2022-03-14] MEDS: Acetaminophen 500 MG Tablet 1000 MG PO ×3 (05:27→20:16)
[2022-03-14 07:00] VITALS: BP 110/74; PULSE 93; RESP 16; TEMP 36.8; O2SAT 97
[2022-03-14 07:33] VITALS: O2SAT 95
[2022-03-14 08:08] LABS: Absolute Lymphocyte Count 0.85 X10^3/uL (0.83-4.51); Absolute Neutrophil Count 6.1 X10^3/uL (2.0-7.7); Basophil# 0.01 X10^3/uL; Basophil% 0.1 % (0-1); Hematocrit 29.2 % (37-47); Hemoglobin 9.6 g/dL (12.0-15.0); Lymphocyte # 0.85 X10^3/ul (0.83-4.51); Lymphocyte % 11.2 % (19-41); Mean Corp Hgb Conc 32.9 g/dL (32-36); Mean Corpuscular Hgb 30.5 pg (27.0-32.0); Mean Corpuscular Volume 92.7 fL (81-99); Mean Platelet Vol. 10.3 fl (6.2-12.0); Monocyte# 0.52 X10^3/uL; Monocyte% 6.9 % (0-10); NRBC Flagged by Analyzer 0 % (0-5); Neutrophil # 6.14 X10^3/uL (2.7-7.7); Neutrophil % 81.1 % (47-70); Platelet Count 218 K/mm3 (150-450); RBC Distribution Width CV 12.8 % (11.6-14.6); RBC Distribution Width SD 43.4 fl (35.1-43.9); Red Blood Count 3.15 M/mm3 (4.2-5.4); White Blood Count 7.6 K/mm3 (4.4-11.0)
[2022-03-14] MEDS: Calcium Carbonate 500 MG Tablet PO ×3 (08:29→16:34)
[2022-03-14 08:34] LABS: ALB/GLOB Ratio 0.8 RATIO (0.9-2.4); AST(SGOT) 146 U/L (15-37); Alanine Aminotransfer ALT/SGPT 237 U/L (13-56); Albumin, Serum 2.6 g/dL (3.2-5.0); Alkaline Phosphatase 88 U/L (45-117); Anion Gap 4 (5-15); BUN 11 mg/dL (7-18); BUN/Creat Ratio 13.9 RATIO (10-20); Calcium,Total 8.3 mg/dL (8.5-10.1); Chloride 106 mmol/L (98-107); Creatinine, Serum 0.79 mg/dL (0.55-1.02); EST Glomerular Filtration Rate 75 mL/min (>60); Est Glom Filt Rate - Afr Amer 91 mL/min (>60); Estimated Creatinine Clearance 38.44 ml/min; Globulin 3.1 g/dL (2.2-4.2); Glucose 133 mg/dL (74-106); Potassium 4.5 mmol/L (3.5-5.1); Protein, Total 5.7 g/dL (6.4-8.2); Sodium Level 137 mmol/L (136-145)
--- NOTE | 2022-03-14 08:42 | PN.HOSP_ITS ---
Subjective Subjective Patient seen and examined. SHe had no complaints. Her pain was well controlled. She is POD 1 of intramedullary nailing of left femur. She also had closed reduction with application of splint to the left distal radius. Review of systems is otherwise negative Objective Data Objective Data Vital Signs: Vital Signs Temp Pulse Resp BP Pulse Ox 98.2 F 93 16 110/74 95 03/14/22 07:00 03/14/22 07:00 03/14/22 07:00 03/14/22 07:00 03/14/22 07:33 Oxygen Flow Rate (L/min) 2 Oxygen Delivery Method Room Air Weight: 130 lb Body Mass Index (BMI) 23.8 Intake & Output: Intake and Output for Last 24 Hours 03/12/22 03/13/22 03/14/22 23:59 23:59 23:59 Intake Total 775.0 / 1075.0 1054.75 / 1054.75 Output Total 275 / 975 1200 / 1200 Balance 500.0 / 100.0 -145.25 / -145.25 Lab / Micro Data Result Diagrams: 03/14/22 08:00 03/14/22 08:00 Labs: Laboratory Results - last 24 hr 03/13/22 03:14: Blood Type B POSITIVE, Antibody Screen NEGATIVE 03/13/22 08:50: Sodium 136, Potassium 4.4, Chloride 102, Carbon Dioxide 26.0, Anion Gap 8, BUN 12, Creatinine 0.89, Estim Creat Clear Calc 43.20, Est GFR (MDRD) Af Amer 79, Est GFR (MDRD) Non-Af 65, BUN/Creatinine Ratio 13.4, Glucose 154 H, Calcium 8.3 L, Total Bilirubin 0.70, AST 838 H, ALT 478 H, Alkaline Phosphatase 121 H, Total Protein 6.7, Albumin 3.1 L, Globulin 3.6, Albumin/Globulin Ratio 0.9 03/14/22 08:00: WBC 7.6, RBC 3.15 L, Hgb 9.6 L, Hct 29.2 L, MCV 92.7, MCH 30.5, MCHC 32.9, RDW Std Deviation 43.4, RDW Coeff of Marcela 12.8, Plt Count 218, MPV 10.3, Immature Gran % (Auto) 0.700, Neut % (Auto) 81.1 H, Lymph % (Auto) 11.2 L, Waldo % (Auto) 6.9, Eos % (Auto) 0.0, Baso % (Auto) 0.1, Absolute Neuts (auto) 6.1, Absolute Lymphs (auto) 0.85, Nucleated RBC % 0 03/14/22 08:00: Sodium 137, Potassium 4.5, Chloride 106, Carbon Dioxide 27.0, Anion Gap 4 L, BUN 11, Creatinine 0.79, Estim Creat Clear Calc 38.44, Est GFR (MDRD) Af Amer 91, Est GFR (MDRD) Non-Af 75, BUN/Creatinine Ratio 13.9, Glucose 133 H, Calcium 8.3 L, Total Bilirubin 0.70, AST 146 H, ALT 237 H, Alkaline Phosphatase 88, Total Protein 5.7 L, Albumin 2.6 L, Globulin 3.1, Albumin/Glob ulin Ratio 0.8 L Radiography Diagnostic Testing: Radiology Impression Shoulder X-Ray 03/13/22 03:18 IMPRESSION: Transverse fracture through the subcapital region of the proximal left humerus with cephalic migration of the distal fracture fragment. Electronically Signed: Darien Gatica MD at 9:15 EDT , Abdomen Ultrasound 03/13/22 11:23 IMPRESSION: Normal right upper quadrant ultrasound examination. Electronically Signed: Darien Gatica MD at 12:48 EDT , Forearm X-Ray 03/13/22 16:30 IMPRESSION: Fluoroscopic assistance images were obtained. Dictation for documentation purposes only. Electronically Signed: Devyn Swanson MD at 19:19 EDT , Hip X-Ray 03/13/22 17:00 IMPRESSION: Fluoroscopic assistance images were obtained. Dictation for documentation purposes only. Electronically Signed: Devyn Swanson MD at 19:18 EDT , Physical Exam Const alert, oriented x3 and no apparent distress General Appearance: cooperative Exam Limitations: no limitations HEENT head/scalp atraumatic, moist oral mucous membranes and oropharynx normal Head and Scalp: normocephalic Eyes PERRL, EOMs intact bilaterally and conjunctivae normal Neck no lymphadenopathy, supple and no JVD Lymph Lymphatic: no lymphadenopathy noted Resp normal respiratory effort, no retractions, no use of accessory muscles and clear to auscultation bilaterally Cardio regular rate, regular rhythm, S1 normal heart sound, S2 normal heart sound and no murmurs GI normal to inspection, nondistended, normoactive bowel sounds, soft to palpation, non-tender and non-distended Extremity Extremity Narrative: intact dressing over left hip surgical site; LUE in a splint and sling. Peripheral Pulses: Yes pulses 2+ throughout Skin no rashes or lesions noted General Skin Exam: turgor normal Rashes: no rashes Neuro oriented x3 and CN's II-XII intact bilaterally Sensorium / Orientation: awake and alert Psych affect normal Assessment & Plan Assessment/Plan (1) Closed hip fracture: (2) Colles' fracture: (3) Fracture of proximal end of humerus: (4) Fall: PLAN: #Closed left hip fracture due to mechanical fall * s/p left intertrochanteric intramedullary nailing. Today is POD 1 * orthopedic surgery on board * on IV dilaudid, PO oxycodone and PO tylenol * PT/OT on board * fall precautions * incentive spirometry * #Left wrist Colles fracture * also due to mechanical fall * had closed reduction with application of splint of left distal radius * orthopedics surgery on board. * #Left proximal humeral fracture due to mechanical fall * for conservative management, per orthopedic surgery * LUE in a sling * PT/OT on board. * Fall precautions * #Elevated liver enzymes * AST and ALT have trended down signficantly. ALP has also trended down and normalised * RUQ USG showed evidence of cholecystectomy, but was otherwise normal * damon continue trending liver enzymes * * #Hypertension:on lisinopril and cardizem #hyperlipidemia: on statin DVT prophylaxis: lovenox Disposition: to be discharged to TCU, pending precert Charges/Coding Visit Charges Inpatient E&M: 68925 Subs Hosp L2
[2022-03-14] MEDS: Senna/Docusate Sodium 1 Tablet 2 TABLET PO ×2 (09:51→20:16)
[2022-03-14] MEDS: Enoxaparin 40 MG/0.4 ML Syringe SC (09:51)
[2022-03-14 11:00] VITALS: BP 98/75; PULSE 102; RESP 16; TEMP 36.2; O2SAT 96
--- NOTE | 2022-03-14 15:04 | PN.ORTHO_ITS ---
Subjective Subjective Patient seen and examined at bedside this afternoon. She reports she was up with full assistance to the chair today. She noted some pain in her left hip. She also reports some soreness in the left shoulder and left wrist. Denies any numbness or tingling. Tolerating oral intake without nausea or vomiting. Emanuel es fevers, chills, chest pain or shortness of breath. Objective Data Objective Data Vital Signs: Vital Signs Temp Pulse Resp BP Pulse Ox 97.1 F L 102 H 16 98/75 96 03/14/22 11:00 03/14/22 11:00 03/14/22 11:00 03/14/22 11:00 03/14/22 11:00 Oxygen Flow Rate (L/min) 2 Oxygen Delivery Method Room Air Weight: 130 lb Body Mass Index (BMI) 23.8 Intake & Output: Intake and Output for Last 24 Hours 03/12/22 03/13/22 03/14/22 23:59 23:59 23:59 Intake Total 775.0 / 1075.0 2507.25 / 2507.25 Output Total 275 / 975 1700 / 1700 Balance 500.0 / 100.0 807.25 / 807.25 Lab / Micro Data Result Diagrams: 03/14/22 08:00 03/14/22 08:00 Labs: Laboratory Results - last 24 hr 03/14/22 08:00: WBC 7.6, RBC 3.15 L, Hgb 9.6 L, Hct 29.2 L, MCV 92.7, MCH 30.5, MCHC 32.9, RDW Std Deviation 43.4, RDW Coeff of Marcela 12.8, Plt Count 218, MPV 10.3, Immature Gran % (Auto) 0.700, Neut % (Auto) 81.1 H, Lymph % (Auto) 11.2 L, [place] % (Auto) 6.9, Eos % (Auto) 0.0, Baso % (Auto) 0.1, Absolute Neuts (auto) 6.1, Absolute Lymphs (auto) 0.85, Nucleated RBC % 0 03/14/22 08:00: Sodium 137, Potassium 4.5, Chloride 106, Carbon Dioxide 27.0, Anion Gap 4 L, BUN 11, Creatinine 0.79, Estim Creat Clear Calc 38.44, Est GFR (MDRD) Af Amer 91, Est GFR (MDRD) Non-Af 75, BUN/Creatinine Ratio 13.9, Glucose 133 H, Calcium 8.3 L, Total Bilirubin 0.70, AST 146 H, ALT 237 H, Alkaline Phosphatase 88, Total Protein 5.7 L, Albumin 2.6 L, Globulin 3.1, Albumin/Globulin Ratio 0.8 L Radiography Diagnostic Testing: Radiology Impression Forearm X-Ray 03/13/22 16:30 IMPRESSION: Fluoroscopic assistance images were obtained. Dictation for documentation purposes only. Electronically Signed: Devyn Swanson MD at 19:19 EDT , Hip X-Ray 03/13/22 17:00 IMPRESSION: Fluoroscopic assistance images were obtained. Dictation for documentation purposes only. Electronically Signed: Devyn Swanson MD at 19:18 EDT , Physical Exam Narrative General - A&Ox3, NAD. VSS/AF Left lower extremity -incisional dressing C/D/I. SILT Sural, Saphenous, SPN, DPN, Tibial N. distributions. DP, PT 2+. BCR. DF, PF, EHL 5/5. No calf TTP. Left upper extremity-Short arm splint in place, clean, dry and intact. Sensation intact to light touch median/ulnar/radial nerve distribution of the left hand. Cardinal motions left hand are intact. There is capillary refill in the fingertips. Assessment & Plan Assessment/Plan (1) Closed hip fracture: PLAN: POD#1 s/p left femur CMN - Pain control - Medicine following for medical management - PT/OT-weightbearing as tolerated left lower extremity, nonweightbearing left upper extremity - DVT PPX -Lovenox, SCDs, early mobilization - Case management - D/C planning. (2) Colles' fracture: PLAN: Plan for nonoperative management. Nonweightbearing left upper extremity. Maintain splint, keep clean, dry and intact. (3) Fracture of proximal end of humerus: PLAN: Plan for initial nonoperative management of the left proximal humerus fracture. Plan for serial x-rays over the coming weeks. Maintain sli ng. Okay to remove for gentle pendulums and elbow range of motion.
[2022-03-14 16:30] VITALS: BP 92/68; PULSE 95; RESP 16; TEMP 36.6; O2SAT 97
[2022-03-14 20:13] VITALS: BP 109/76; PULSE 96; RESP 16; TEMP 36.6; O2SAT 100
[2022-03-15] VITALS (8 sets, daily range): BP systolic 102–121; BP diastolic 54–87; PULSE 78–96; RESP 16–20; TEMP 36.2–37.3; O2SAT 93–100
[2022-03-15] MEDS: Enoxaparin 40 MG/0.4 ML Syringe SC (05:35)
[2022-03-15] MEDS: Acetaminophen 500 MG Tablet 1000 MG PO ×3 (05:35→22:03)
[2022-03-15] MEDS: oxyCODONE 5 MG Tablet PO ×2 (08:20→14:42)
[2022-03-15] MEDS: Calcium Carbonate 500 MG Tablet PO ×3 (09:37→17:29)
[2022-03-15] MEDS: Senna/Docusate Sodium 1 Tablet 2 TABLET PO ×2 (09:38→22:03)
--- NOTE | 2022-03-15 09:52 | PN.HOSP_ITS ---
Subjective Subjective Patient seen and examined. She has no complaints today and had an uneventful night. Pain is well controlled. Review of systems otherwise negative. Objective Data Objective Data Vital Signs: Vital Signs Temp Pulse Resp BP Pulse Ox 97.5 F L 94 18 121/87 H 96 03/15/22 09:42 03/15/22 09:42 03/15/22 09:42 03/15/22 09:42 03/15/22 09:42 Oxygen Flow Rate (L/min) 2 Oxygen Delivery Method Room Air Weight: 130 lb Body Mass Index (BMI) 23.8 Intake & Output: Intake and Output for Last 24 Hours 03/13/22 03/14/22 03/15/22 23:59 23:59 23:59 Intake Total 775.0 / 1075.0 3097.25 / 3097.25 690 / 690 Output Total 275 / 975 1999 / 1999 700 / 700 Balance 500.0 / 100.0 1097.25 / 1097.25 -10 / -10 Lab / Micro Data Result Diagrams: 03/14/22 08:00 03/14/22 08:00 Physical Exam Const alert, oriented x3 and no apparent distress General Appearance: cooperative Exam Limitations: no limitations HEENT head/scalp atraumatic, moist oral mucous membranes and oropharynx normal Head and Scalp: normocephalic Eyes PERRL, EOMs intact bilaterally and conjunctivae normal Neck no lymphadenopathy, supple and no JVD Lymph Lymphatic: no lymphadenopathy noted Resp normal respiratory effort, no retractions, no use of accessory muscles and clear to auscultation bilaterally Cardio regular rate, regular rhythm, S1 normal heart sound, S2 normal heart sound and no murmurs GI normal to inspection, nondistended, normoactive bowel sounds, soft to palpation, non-tender and non-distended Extremity Extremity Narrative: intact dressing over left hip surgical site; LUE in a splint and sling. Peripheral Pulses: Yes pulses 2+ throughout Skin no rashes or lesions noted General Skin Exam: turgor normal Rashes: no rashes Neuro oriented x3 and CN's II-XII intact bilaterally Sensorium / Orientation: awake and alert Psych affect normal Assessment & Plan Assessment/Plan (1) Closed hip fracture: (2) Colles' fracture: (3) Fracture of proximal end of humerus: (4) Fall: PLAN: #Closed left hip fracture due to mechanical fall * s/p left intertrochanteric intramedullary nailing. Today is POD 2 * orthopedic surgery on board * on IV dilaudid, PO oxycodone and PO tylenol * PT/OT on board * fall precautions * incentive spirometry * #Left wrist Colles fracture * also due to mechanical fall * had closed reduction with application of splint of left distal radius * orthopedics surgery on board. * #Left proximal humeral fracture due to mechanical fall * for conservative management, per orthopedic surgery * LUE in a sling * PT/OT on board. * Fall precautions * #Elevated liver enzymes * AST and ALT have trended down signficantly. ALP has also trended down and normalised * RUQ USG showed evidence of cholecystectomy, but was otherwise normal * will monitor * * #Hypertension:on lisinopril and cardizem #hyperlipidemia: on statin DVT prophylaxis: lovenox Disposition: to be discharged to TCU, pending precert Charges/Coding Visit Charges Inpatient E&M: 43984 Subs Hosp L2
--- NOTE | 2022-03-15 18:37 | NURSING ---
Reviewed charting with trina Hunter RN
--- NOTE | 2022-03-15 21:32 | PCM.PN.ORT ---
Subjective Subjective Patient seen and examined this evening at bedside. She denies any new complaints. Up again with therapy. Denies any fevers, chills, nausea vomiting, chest pain or shortness of breath. Pain is stable. Objective Data Objective Data Vital Signs: Vital Signs Temp Pulse Resp BP Pulse Ox 97.1 F L 93 20 H 111/66 96 03/15/22 15:40 03/15/22 15:40 03/15/22 15:40 03/15/22 15:40 03/15/22 16:17 Oxygen Flow Rate (L/min) 2 Oxygen Delivery Method Room Air Weight: 130 lb Body Mass Index (BMI) 23.8 Intake & Output: Intake and Output for Last 24 Hours 03/13/22 03/14/22 03/15/22 23:59 23:59 23:59 Intake Total 775.0 / 1075.0 3097.25 / 3097.25 1390 / 1390 Output Total 275 / 975 1999 / 1999 1550 / 1550 Balance 500.0 / 100.0 1097.25 / 1097.25 -160 / -160 Lab / Micro Data Result Diagrams: 03/14/22 08:00 03/14/22 08:00 Physical Exam Narrative General - A&Ox3, NAD. VSS/AF Left lower extremity -incisional dressing C/D/I. SILT Sural, Saphenous, SPN, DPN, Tibial N. distributions. DP, PT 2+. BCR. DF, PF, EHL 5/5. No calf TTP. Left upper extremity-Short arm splint in place, clean, dry and intact. Sensation intact to light touch median/ulnar/radial nerve distribution of the left hand. Cardinal motions left hand are intact. There is capillary refill in the fingertips. Assessment & Plan Assessment/Plan (1) Closed hip fracture: PLAN: POD#2 s/p left femur CMN - Pain control - Medicine following for medical management - PT/OT-weightbearing as tolerated left lower extremity, nonweightbearing left upper extremity - DVT PPX -Lovenox, SCDs, early mobilization - Case management - D/C planning. Pre-CERT pending. Stable for discharge from my standpoint. Follow-up 2 weeks postoperatively. Dry sterile dressing changes to the operative sites. I will sign off at this time. Please do not hesitate to call if any questions or concerns arise. (2) Colles' fracture: PLAN: Plan for nonoperative management. Nonweightbearing left upper extremity. Maintain splint, keep clean, dry and intact. (3) Fracture of proximal end of humerus: PLAN: Plan for initial nonoperative management of the left proximal humerus fracture. Plan for serial x-rays over the coming weeks. Maintain sling. Okay to remove for gentle pendulums and elbow range of motion.
[2022-03-15] MEDS: dilTIAZem 60 MG CAP.SR.12H 120 MG PO (22:03)
[2022-03-16 03:39] VITALS: BP 112/78; PULSE 88; RESP 18; TEMP 37.1; O2SAT 98
[2022-03-16 05:20] LABS: Absolute Lymphocyte Count 3.06 X10^3/uL (0.83-4.51); Absolute Neutrophil Count 4.5 X10^3/uL (2.0-7.7); Basophil# 0.03 X10^3/uL; Basophil% 0.4 % (0-1); Eosinophil# 0.08 X10^3/uL; Hematocrit 24.7 % (37-47); Lymphocyte # 3.06 X10^3/ul (0.83-4.51); Lymphocyte % 36.8 % (19-41); Mean Corp Hgb Conc 32.4 g/dL (32-36); Mean Corpuscular Hgb 30.3 pg (27.0-32.0); Mean Corpuscular Volume 93.6 fL (81-99); Mean Platelet Vol. 10.1 fl (6.2-12.0); Monocyte# 0.59 X10^3/uL; Monocyte% 7.1 % (0-10); NRBC Flagged by Analyzer 0 % (0-5); Neutrophil # 4.51 X10^3/uL (2.7-7.7); Neutrophil % 54.2 % (47-70); Platelet Count 196 K/mm3 (150-450); RBC Distribution Width SD 44.1 fl (35.1-43.9); Red Blood Count 2.64 M/mm3 (4.2-5.4); White Blood Count 8.3 K/mm3 (4.4-11.0)
[2022-03-16] MEDS: Acetaminophen 500 MG Tablet 1000 MG PO ×2 (05:22→13:29)
[2022-03-16] MEDS: Enoxaparin 40 MG/0.4 ML Syringe SC (05:23)
[2022-03-16] MEDS: Levothyroxine 75 MCG Tablet PO (05:23)
[2022-03-16 05:41] LABS: Anion Gap 6 (5-15); BUN 12 mg/dL (7-18); BUN/Creat Ratio 18.2 RATIO (10-20); Calcium,Total 8.2 mg/dL (8.5-10.1); Chloride 103 mmol/L (98-107); Creatinine, Serum 0.66 mg/dL (0.55-1.02); EST Glomerular Filtration Rate 93 mL/min (>60); Est Glom Filt Rate - Afr Amer 112 mL/min (>60); Estimated Creatinine Clearance 38.44 ml/min; Glucose 104 mg/dL (74-106); Potassium 3.7 mmol/L (3.5-5.1); Sodium Level 139 mmol/L (136-145)
[2022-03-16 09:31] VITALS: BP 96/64; PULSE 96; RESP 18; TEMP 36.4; O2SAT 95
[2022-03-16] MEDS: Senna/Docusate Sodium 1 Tablet 2 TABLET PO (09:35)
[2022-03-16] MEDS: Calcium Carbonate 500 MG Tablet PO ×2 (09:35→12:13)
--- NOTE | 2022-03-16 09:42 | CASEMGMT ---
Addendum entered by Madhavi Timmons 03/16/22 09:53: ESTIVEN notified patient's son who was present. Madhavi PINON Original Note: ESTIVEN received a call from Keisha in TCU and patient was approved. ESTIVEN notified physician, receptionist secretary, patient, and RN. Madhavi PINON
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
--- NOTE | 2022-03-16 11:09 | TREXTCAR_ITS ---
Diet 03/14/22 11:01 Diet: Regular - General Is pt able to select menu?: Yes Diet Comments: advance as tolerated Routine Orders/Code Status Enema Type: Fleetz Enema Frequency: Daily PRN Suppository Type: Dulcolax 10mg Suppository Frequency: Daily PRN O2 Frequency: PRN Keep PO Greater than or Equal to (%): 90 Wound(s) left hip: Wound Type: Surgical Incision left wrist: Wound Type: fx wrapped with acewrap, in sling Therapies Weight Bearing: Weight bearing as tolerated Physical Therapy: Eval and Treat Occupational Therapy: Eval and Treat Problem/Diagnosis (1) Closed hip fracture: Status: Acute (2) Colles' fracture: Status: Acute (3) Fracture of proximal end of humerus: Status: Acute Allergies/Procedures Done in Hospital Allergies naproxen sodium [From Aleve] Allergy (Verified 03/13/22 03:05) WENT OUT COLD Penicillins Allergy (Verified 03/13/22 03:05) Rash Procedures: None Type of Care/Length of Stay Estimated LOS: Convalescent Care Less Than 30 days Type of Care Needed: Skilled Rehab Potential: Good Prognosis: Good Additional Orders/Day of Discharge Day of Discharge: 03/16/22 Discharge Plan Admission Admit Date/Time: 03/13/22 04:52 Primary Reason for Your Visit: left hip, wrist and shoulder fracture due to mechanical fall Attending Provider: Makeda Dacosta Primary Care Provider: Tanya Garcia NP Consulting Providers: Pedro Doan ; Paolo Carson Instructions Patient Instructions: Fx Hip Surg Dc Discharge Orders/Prescriptions Prescriptions: New Eliquis 2.5 mg tablet 2.5 mg PO BID Qty: 56 RF: 0 oxycodone 5 mg tablet 5 mg PO Q6H PRN (Reason: pain) 3 Days Qty: 12 RF: 0 Continued levothyroxine 25 MCG tablet 75 mcg PO MOTUWETHFRSA RF: 0 lisinopril 2.5 MG tablet 2.5 mg PO DAILY RF: 0 diltiazem HCl [Cardizem] 120 MG tablet 120 mg PO BID RF: 0 Referrals / Follow Up: Gary Marcus DO [STAFF PHYSICIAN] - Within 1 Week Tanya Garcia NP, ENVIRONMENTAL AIR SPECIALIST-C [Primary Care Provider] - Within 2 Weeks Disposition Disposition (needs filled in before D/C Order can be placed): Long-Term Facility
--- NOTE | 2022-03-16 11:14 | PHA.DC.MR ---
Pharmacy Service has performed discharge medication reconciliation for this patient. The patient's discharge medication list was reviewed for discrepancies and discrepancies were resolved. Home Medications levothyroxine 75 mcg PO MOTUWETHFRSA 05/31/14 lisinopril 2.5 mg PO DAILY 02/02/17 diltiazem HCl [Cardizem] 120 mg PO BID 10/04/17 apixaban [Eliquis] 2.5 mg PO BID #56 tab 03/16/22 oxycodone 5 mg PO Q6H PRN 3 Days #12 tab 03/16/22
[2022-03-16] MEDS: oxyCODONE 5 MG Tablet PO (12:13)
--- NOTE | 2022-03-16 13:25 | NURSING ---
report called to Queta CERDA on TCU for further care of this patient
--- NOTE | 2022-03-16 14:17 | NURSING ---
Reviewed charting with Brad Hunter RN
== END 2022-03-16 13:45 | disposition skilled nursing facility (03) | DRG 482 ==
LOC: ED 04:22 → PCU 04:59
PROVIDERS: Student in an Organized Health Care Education/Training Program; Admitting Provider Family Medicine; Emergency Provider Emergency Medicine; PCP Nurse Practitioner; Visit Provider Student in an Organized Health Care Education/Training Program
PROC: 0QS706Z Reposition Left Upper Femur with Intramedullary Internal Fixation Device, Open Approach (ICD-10-PCS; CPT 27245; principal; 2022-03-13 14:30)
DX: M80.852A Other osteoporosis with current pathological fracture, left femur, initial encounter for fracture (principal); M80.822A Other osteoporosis with current pathological fracture, left humerus, initial encounter for fracture; M80.832A Other osteoporosis with current pathological fracture, left forearm, initial encounter for fracture; E03.9 Hypothyroidism, unspecified; F17.290 Nicotine dependence, other tobacco product, uncomplicated; I10 Essential (primary) hypertension; W18.31XA Fall on same level due to stepping on an object, initial encounter; R74.8 Abnormal levels of other serum enzymes; Z79.899 Other long term (current) drug therapy
CPT/HCPCS: 36415; 70450; 71045; 73030; 73090; 73110; 73502; 76000; 76705; 80048; 80053; 85025; 85610; 86850; 86900; 86901; 87426; 93005; 97110; 97162; 97166; 97530; 97535; 99285; 99406; C1713; J7030; J7120; A4216; J2405

== ENCOUNTER 2022-03-16 12:50 | Inpatient (IN) | payer MEDICARE, SELFPAY ==
[2022-03-16 14:08] VITALS: BP 131/68; PULSE 90; RESP 16; TEMP 35.9; O2SAT 96; O2SAT 99; BMI 23.8
--- NOTE | 2022-03-16 14:57 | HP.PCM_ITS ---
HPI - General General Date of Admission: 03/16/22 HPI Narrative 03/13/2022 KENNY VILLASENOR, is a 76 Female who presents to [facility] Emergency Department with fall. 03/13/2022 EKG normal sinus rhythm, normal EKG. Tripped on shoelaces, fell, hit left side of head, left shoulder pain, left wrist pain, left hip pain. Morphine given for pain. No loss of consciousness. X-rays shows left proximal humerus fracture, left distal radius fracture, left hip fracture. 03/13/2022 Admit to Hospital Splint applied for left wrist colles fracture. Orthopedics consult, NPO, IV Fluids, Dilaudid for left hip fracture. 03/13/2022 Pain controlled with Dilaudid, oxycodone, Tylenol. Non-surgical management left proximal humerus fracture, left upper extremity sling. Gallbladder ultrasound to evaluate elevated liver function tests. 03/13/2022 Dr. Marcus performed closed reduction with application of splint of left distal radius fracture. Also, Left hip intramedullary nail fixation. 03/14/2022 Pain controlled. Gallbladder ultrasound showed cholecystectomy, no other findings. Liver function tests much improved. 03/15/2022 Liver function tests normalized. 03/15/2022 PT/OT WBAT left lower extremity. NWB left upper extremity. Lovenox for DVT prophylaxis. 03/16/2022 Admit to TCU with debility, here for rehabilitation, strengthening, prior to discharge home alone. [facility] Medical History (Updated 03/16/22 @ 15:[address] Manuel Bowen MD) Hypertension Hypothyroidism Osteoporosis Home Medications levothyroxine 75 mcg PO MOTUWETHFRSA 05/31/14 [History Last Taken 03/13/22] lisinopril 2.5 mg PO DAILY 02/02/17 [History Last Taken 03/13/22] diltiazem HCl [Cardizem] 120 mg PO BID 10/04/17 [History Last Taken 03/13/22] apixaban [Eliquis] 2.5 mg PO BID 03/16/22 [History Last Taken Unknown] oxycodone 5 mg PO Q6H PRN 3 Days #12 tab 03/16/22 [Rx Last Taken Unknown] Allergy/AdvReac Type Severity Reaction Status Date / Time naproxen sodium [From Aleve] Allergy WENT OUT Verified 03/13/22 03:05 COLD Penicillins Allergy Rash Verified 03/13/22 03:05 Surgical History (Updated 03/16/22 @ 15:[address] Manuel Bowen MD) History of cholecystectomy Social History (Updated 03/16/22 @ 15:[address] Manuel Bowen MD) household members: none Smoking Status: Current every day smoker tobacco type: e-cigarettes alcohol intake: never substance use type: other details: CBD. ROS Constitutional Constitutional: Denies chills, fever(s) or weight gain ENT HEENT: Denies headache(s), nasal congestion or nasal discharge Cardiovascular Cardiovascular: Denies chest pain or palpitations Respiratory/Chest Respiratory/Chest: Denies cough, excessive phlegm production or shortness of breath with exertion Gastrointestinal Gastrointestinal: Denies abdominal pain, nausea or vomiting Genitourinary Genitourinary: Denies dysuria Musculoskeletal Musculoskeletal: Denies joint pain or joint swelling Integumentary Integumentary: Denies rash or wounds Neurologic Neurologic: Denies focal weakness, numbness or tingling Psychiatric Psychiatric: Denies anxiety, auditory hallucinations, depression, homicidal ideation or suicidal ideation Vital Signs Vital Signs Vital Signs: 03/16/22 14:08 Temperature 96.6 F L Temperature Source Temporal Pulse Rate 90 Respiratory Rate 16 Blood Pressure 131/68 H Blood Pressure Mean 89 Blood Pressure Source Monitor Blood Pressure Position Semi-Fowlers Blood Pressure Location Right Arm Pulse Ox 96 Oxygen Delivery Method Room Air Weight Weight: 58.967 kg Body Mass Index (BMI) 23.8 Physical Exam Const alert General Appearance: cooperative HEENT normocephalic Eyes PERRL and EOMs intact bilaterally Neck supple, no JVD and no carotid bruits Resp normal respiratory effort, normal air movement and clear to auscultation bilaterally Cardio regular rate and regular rhythm GI normal to inspection, nondistended, normoactive bowel sounds, non-tender and non-distended Extremity normal capillary refill Extremity Narrative: Left upper extremity splint, Left upper extremity sling. General Extremity: Negative for edema Skin no rashes or lesions noted General Skin Exam: no breakdown Psych affect normal Appearance: appropriate Assessment & Plan Assessment/Plan (1) Debility: (2) Fall: (3) Closed hip fracture: (4) Colles' fracture: (5) Fracture of proximal end of humerus: (6) Hypertension: (7) Hypothyroidism: (8) Osteoporosis: PLAN: 76 year old female with below past medical history hospitalized after fall, left proximal humerus fracture treated with sling, left distal radius fracture treated with closed reduction with application of splint, left hip fracture treated with intramedullary nail fixation 03/13/[address] Marcus, admitted to TCU with debility, here for rehabilitation, strengthening, prior to discharge home alone. * Debility - PT/OT. * Pain - Tylenol 1000mg q6h prn pain (1-3), Tramadol 50mg q6h prn pain (4-5), Oxycodone 5mg q4h prn pain (6-10). * Bowel - Miralax 17gm daily, senna/colace 2 tablets bid, Dulcolax 10mg daily prn. * Adult immunization - Administer pneumonia vaccine, flu vaccine, covid19 vaccine as appropriate. * DVT prophylaxis - Eliquis 2.5mg bid thru 04/17/2022. * Hypertension - Diltiazem 120mg bid, Lisinopril 2.5mg daily. * Hypothyroidism - Levothyroxine 75mcg daily 6 days/week. * Left knee pain - X-ray left knee.
--- NOTE | 2022-03-16 15:45 | RAD_ITS ---
STUDY: X-RAY - LEFT KNEE REASON FOR EXAM: Female, 76 years old. Pain. TECHNIQUE: 3 view(s) of the knee. COMPARISON: None. FINDINGS: Normal visualized distal femur. Normal visualized proximal tibia and fibula. Normal proximal tibiofibular articulation. There is moderate degenerative arthrosis of the medial femorotibial compartment with moderate joint space narrowing. There is moderate degenerative arthrosis of the lateral femorotibial compartment with moderate joint space narrowing. Normal patellofemoral articulation. Soft tissue calcifications and vascular calcifications. RAD/Knee 3 Views IMPRESSION: Degenerative arthrosis. Electronically Signed: Ellis Junior MD at 16:54 EDT ,
[2022-03-16] MEDS: dilTIAZem CD 120 MG Capsule PO (17:31)
[2022-03-16] MEDS: Polyethylene Glycol 3350 17 GM PACKET PO (17:31)
[2022-03-16] MEDS: APIXABAN 2.5 MG TABLET PO (17:32)
[2022-03-16] MEDS: Senna/Docusate Sodium 1 Tablet 2 TABLET PO (17:32)
[2022-03-17] MEDS: oxyCODONE 5 MG Tablet PO ×2 (02:51→10:49)
[2022-03-17] MEDS: Polyethylene Glycol 3350 17 GM PACKET PO (05:55)
[2022-03-17] MEDS: APIXABAN 2.5 MG TABLET PO ×2 (05:55→17:21)
[2022-03-17] MEDS: Senna/Docusate Sodium 1 Tablet 2 TABLET PO (05:56)
[2022-03-17] MEDS: Lisinopril 2.5 MG Tablet PO (05:57)
[2022-03-17] MEDS: Levothyroxine 75 MCG Tablet PO (05:57)
[2022-03-17] MEDS: dilTIAZem CD 120 MG Capsule PO ×2 (06:04→18:42)
[2022-03-17 07:15] LABS: Absolute Lymphocyte Count 2.67 X10^3/uL (0.83-4.51); Absolute Neutrophil Count 4.8 X10^3/uL (2.0-7.7); Basophil# 0.03 X10^3/uL; Basophil% 0.4 % (0-1); Eosinophil# 0.06 X10^3/uL; Eosinophils% 0.7 % (0-5); Hematocrit 22.1 % (37-47); Hemoglobin 7.3 g/dL (12.0-15.0); Lymphocyte # 2.67 X10^3/ul (0.83-4.51); Lymphocyte % 32.9 % (19-41); Mean Corpuscular Hgb 30.8 pg (27.0-32.0); Mean Corpuscular Volume 93.2 fL (81-99); Mean Platelet Vol. 10.4 fl (6.2-12.0); Monocyte# 0.54 X10^3/uL; Monocyte% 6.7 % (0-10); NRBC Flagged by Analyzer 0 % (0-5); Neutrophil # 4.76 X10^3/uL (2.7-7.7); Neutrophil % 58.7 % (47-70); Platelet Count 217 K/mm3 (150-450); RBC Distribution Width CV 13.3 % (11.6-14.6); RBC Distribution Width SD 44.3 fl (35.1-43.9); Red Blood Count 2.37 M/mm3 (4.2-5.4); White Blood Count 8.1 K/mm3 (4.4-11.0)
[2022-03-17 07:29] LABS: Anion Gap 6 (5-15); BUN 11 mg/dL (7-18); Calcium,Total 8.4 mg/dL (8.5-10.1); Chloride 103 mmol/L (98-107); Creatinine, Serum 0.61 mg/dL (0.55-1.02); EST Glomerular Filtration Rate 101 mL/min (>60); Est Glom Filt Rate - Afr Amer 123 mL/min (>60); Estimated Creatinine Clearance 38.44 ml/min; Glucose 104 mg/dL (74-106); Potassium 3.5 mmol/L (3.5-5.1); Sodium Level 137 mmol/L (136-145)
--- NOTE | 2022-03-17 07:50 | NURSING ---
03/17 Hgb was 7.3. RN notified.
--- NOTE | 2022-03-17 10:08 | NURSING ---
Pt's Hgb 7.3 today, Dr. Bowen updated and Chino cabrera CBC tomorrow
[2022-03-17] MEDS: Tuberculin,Purif.prot.deriv. 50 TU/ML Vial 0.1 ML ID (10:37)
[2022-03-17] MEDS: Acetaminophen 500 MG Tablet 1000 MG PO (10:49)
[2022-03-17 15:15] VITALS: BP 104/60; PULSE 71; RESP 20; TEMP 35.9; O2SAT 97
[2022-03-17 17:08] VITALS: O2SAT 97
[2022-03-17 18:41] VITALS: BP 112/61; PULSE 77
--- NOTE | 2022-03-17 20:41 | NURSING ---
dressings changed to LT proximal and distal incisions. incisions well approx, waqas intact. some bruising noted around distal incision.
[2022-03-18] MEDS: dilTIAZem CD 120 MG Capsule PO ×2 (05:48→17:41)
[2022-03-18] MEDS: APIXABAN 2.5 MG TABLET PO (05:49)
[2022-03-18] MEDS: Lisinopril 2.5 MG Tablet PO (05:50)
[2022-03-18 05:52] VITALS: BP 114/55; PULSE 84
[2022-03-18 06:17] LABS: Absolute Lymphocyte Count 2.39 X10^3/uL (0.83-4.51); Absolute Neutrophil Count 4.1 X10^3/uL (2.0-7.7); Basophil# 0.02 X10^3/uL; Basophil% 0.3 % (0-1); Eosinophils% 1.4 % (0-5); Hematocrit 22.2 % (37-47); Hemoglobin 7.2 g/dL (12.0-15.0); Lymphocyte # 2.39 X10^3/ul (0.83-4.51); Mean Corp Hgb Conc 32.4 g/dL (32-36); Mean Corpuscular Hgb 30.4 pg (27.0-32.0); Mean Corpuscular Volume 93.7 fL (81-99); Mean Platelet Vol. 10.2 fl (6.2-12.0); Monocyte# 0.61 X10^3/uL; Monocyte% 8.4 % (0-10); NRBC Flagged by Analyzer 0.3 % (0-5); Neutrophil # 4.05 X10^3/uL (2.7-7.7); Neutrophil % 55.9 % (47-70); Platelet Count 251 K/mm3 (150-450); RBC Distribution Width CV 13.5 % (11.6-14.6); Red Blood Count 2.37 M/mm3 (4.2-5.4); White Blood Count 7.2 K/mm3 (4.4-11.0)
[2022-03-18 14:00] VITALS: BP 103/52; PULSE 76; RESP 16; TEMP 36.2; O2SAT 98
[2022-03-18 14:30] VITALS: O2SAT 96
[2022-03-18] MEDS: oxyCODONE 5 MG Tablet PO ×2 (15:00→20:24)
[2022-03-18] MEDS: Acetaminophen 500 MG Tablet 1000 MG PO (15:00)
[2022-03-18 17:40] VITALS: BP 112/63; PULSE 71
[2022-03-18 19:52] VITALS: PULSE 79; RESP 16; O2SAT 98
--- NOTE | 2022-03-18 20:30 | NURSING ---
Patient assessment completed. Pain 7-8 out of 10. Polar care ordered and started. Patient states Oh this is great!
[2022-03-19] MEDS: Levothyroxine 75 MCG Tablet PO (05:39)
[2022-03-19] MEDS: Lisinopril 2.5 MG Tablet PO (05:39)
[2022-03-19] MEDS: dilTIAZem CD 120 MG Capsule PO ×2 (05:40→17:13)
[2022-03-19 05:57] LABS: Absolute Lymphocyte Count 2.53 X10^3/uL (0.83-4.51); Absolute Neutrophil Count 3.7 X10^3/uL (2.0-7.7); Basophil# 0.03 X10^3/uL; Basophil% 0.4 % (0-1); Eosinophils% 2.8 % (0-5); Hematocrit 23.6 % (37-47); Hemoglobin 7.6 g/dL (12.0-15.0); Lymphocyte # 2.53 X10^3/ul (0.83-4.51); Lymphocyte % 35.3 % (19-41); Mean Corp Hgb Conc 32.2 g/dL (32-36); Mean Corpuscular Hgb 30.6 pg (27.0-32.0); Mean Corpuscular Volume 95.2 fL (81-99); Monocyte# 0.59 X10^3/uL; Monocyte% 8.2 % (0-10); NRBC Flagged by Analyzer 0.3 % (0-5); Neutrophil % 51.8 % (47-70); Platelet Count 276 K/mm3 (150-450); RBC Distribution Width CV 13.9 % (11.6-14.6); RBC Distribution Width SD 46.9 fl (35.1-43.9); Red Blood Count 2.48 M/mm3 (4.2-5.4); White Blood Count 7.2 K/mm3 (4.4-11.0)
[2022-03-19 07:11] VITALS: O2SAT 93
[2022-03-19 09:20] VITALS: PULSE 78; RESP 18; O2SAT 96
--- NOTE | 2022-03-19 10:56 | CASEMGMT ---
Social Work Met with patient for initial assessment. Introduced self and role. Pt wishes to have dtr as primary contact and son added as secondary contact. Pt would like to complete advanced directives. SW to complete prior to DC as time allows. Discussed code status and MOLST form. Pt confirms full code. MOLST communicated to , placed in chart. The goal is for pt to return home with dtr. Dtr works second shift and son lives an hour away and works third shift. SW to continue to follow for DC planning. Breanne Anderson, THERAPEUTIC STRATEGY LEAD RAILWAY TRACK WORKER
[2022-03-19 14:00] VITALS: BP 113/53; PULSE 78; RESP 18; TEMP 36.1; O2SAT 96
--- NOTE | 2022-03-19 16:55 | PHA.CONS1_ITS ---
Progress Note - Pharmacy Subjective: TCU Admission Objective: Allergies naproxen sodium [From Aleve] Allergy (Verified 03/13/22 03:05) WENT OUT COLD Penicillins Allergy (Verified 03/13/22 03:05) Rash Current Medications Generic Name Dose Route Start Last Admin Trade Name Freq PRN Reason Stop Dose Admin Acetaminophen 1,000 mg 03/16/22 15:24 03/18/22 15:00 Acetaminophen 500 Mg Tablet PO 1,000 mg Q6H PRN PRN Administration Pain Score 1-3 Apixaban 2.5 mg 03/16/22 18:00 03/19/22 05:40 Apixaban 2.5 Mg Tablet PO 04/17/22 23:55 Not Given BID SUNSHINE Bisacodyl 10 mg 03/16/22 15:24 Bisacodyl 5 Mg Tablet PO DAILY PRN Constipation COVID-19 Vaccine mRNA LNP-S (PFR) (PF) 30 mcg 03/20/22 11:00 Covid-19 Vacc, Mrna(Pfizer)/Pf 30 Mcg/0.3 Ml Syringe IM 03/20/22 11:01 .ONCE ONE Calamine/Phenol 1 applic 03/19/22 18:00 Menthol/Lanolin/Calamine/Znox 113 Gm Tube TOPICAL BID [facility] Protocol Diltiazem HCl 120 mg 03/16/22 18:00 03/19/22 05:40 Diltiazem Cd 120 Mg Capsule PO 120 mg BID SUNSHINE Administration Levothyroxine Sodium 75 mcg 03/17/22 06:00 03/19/22 05:39 Levothyroxine 75 Mcg Tablet PO 75 mcg [id number] SUNSHINE Administration Lisinopril 2.5 mg 03/17/22 06:00 03/19/22 05:39 Lisinopril 2.5 Mg Tablet PO 2.5 mg DAILY SUNSHINE Administration Nutritional Formula (Lactose Free) 118 ml 03/18/22 12:45 03/19/22 11:50 Ensure Compact 118 Ml Liquid PO 118 ml TIDCM SUNSHINE Administration Oxycodone HCl 5 mg 03/16/22 15:24 03/18/22 20:24 Oxycodone 5 Mg Tablet PO 5 mg Q4H PRN PRN Administration Pain Score 6-10 Polyethylene Glycol 17 gm 03/16/22 15:30 03/19/22 05:41 Polyethylene Glycol 3350 17 Gm Packet PO Not Given DAILY SUNSHINE Senna/Docusate Sodium 2 tablet 03/16/22 18:00 03/19/22 05:41 Senna/Docusate Sodium 1 Tablet PO Not Given BID SUNSHINE Tramadol HCl 50 mg 03/16/22 15:24 Tramadol 50 Mg Tablet PO Q6H PRN PRN Pain Score 4-5 Tuberculin PPD 0.1 ml 03/24/22 10:00 Tuberculin,Purif.Prot.Deriv. 50 Tu/Ml Vial ID 03/24/22 10:01 X1 ONE Problem List (Last Reviewed 03/16/22 @ 15:[address] Manuel Bowen MD) Osteoporosis (Acute) Hypothyroidism (Acute) Hypertension (Chronic) Fall (Acute) Debility (Acute) Closed hip fracture (Acute) Colles' fracture (Acute) Fracture of proximal end of humerus (Acute) Vital Signs Temp Pulse Resp BP Pulse Ox 96.9 F L 78 18 113/53 L 96 03/19/22 14:00 03/19/22 14:00 03/19/22 14:00 03/19/22 14:00 03/19/22 14:00 Oxygen Delivery Method Room Air Weight: 58.967 kg Body Mass Index (BMI) 23.8 Sodium 137 mmol/L (136-145) 03/17/22 06:32 Potassium 3.5 mmol/L (3.5-5.1) 03/17/22 06:32 Chloride 103 mmol/L (98-107) 03/17/22 06:32 Carbon Dioxide 28.0 mmol/L (21.0-32.0) 03/17/22 06:32 Anion Gap 6 (5-15) 03/17/22 06:32 BUN 11 mg/dL (7-18) 03/17/22 06:32 Creatinine 0.61 mg/dL (0.55-1.02) 03/17/22 06:32 Est GFR (MDRD) Af Amer 123 mL/min (>60) 03/17/22 06:32 Est GFR (MDRD) Non-Af 101 mL/min (>60) 03/17/22 06:32 BUN/Creatinine Ratio 18.0 RATIO (10-20) 03/17/22 06:32 Glucose 104 mg/dL (74-106) 03/17/22 06:32 Assessment/Plan: 1. Pain: acetaminophen 1000mg PO Q6H PRN pain 1-3, tramadol 50mg PO Q6H PRN pain 4-5 and oxycodone 5mg PO Q4H PRN pain 6-10. Please continue to monitor for increased pain, PRN usage, constipation and respiratory depression. 2. DVT prophylaxis: apixaban 2.5mg PO BID thru 04/17/22. Please continue to monitor for S/S of bleeding/DVT and hemoglobin (last 7.6g/dL). 3. Hypertension: diltiazem CD 120mg PO BID and lisinopril 2.5mg PO daily. Please continue to monitor for BP (last 113/53), HR (last 78), renal function, potassium (last 3.5mmol/L) and cough. *4. Hypothyroidism: levothyroxine 75mcg PO daily except Saturday. Please continue to monitor for S/S of hypo/hyperthyroidism. Please consider ordering a TSH if clinically appropriate. Resident does not have one in the chart. Thanks. Psychotropic Medications: None Unnecessary Medications: None Bowel Regimen: Miralax 17gm PO daily, senna/docusate 2T PO BID and bisacodyl 10mg PO daily PRN constipation. Please continue to monitor for constipation and PRN usage. Date of Note:: 03/19/22
[2022-03-19] MEDS: Menthol/Lanolin/Calamine/Znox 113 GM Tube 1 APPLIC TOPICAL (17:13)
[2022-03-19] MEDS: Acetaminophen 500 MG Tablet 1000 MG PO (21:21)
[2022-03-19] MEDS: Primidone 50 MG Tablet PO (21:22)
[2022-03-20 05:28] LABS: Absolute Lymphocyte Count 2.58 X10^3/uL (0.83-4.51); Basophil# 0.02 X10^3/uL; Basophil% 0.3 % (0-1); Eosinophil# 0.19 X10^3/uL; Eosinophils% 2.5 % (0-5); Hematocrit 23.6 % (37-47); Hemoglobin 7.6 g/dL (12.0-15.0); Lymphocyte # 2.58 X10^3/ul (0.83-4.51); Lymphocyte % 34.6 % (19-41); Mean Corp Hgb Conc 32.2 g/dL (32-36); Mean Corpuscular Volume 96.3 fL (81-99); Mean Platelet Vol. 9.9 fl (6.2-12.0); Monocyte# 0.55 X10^3/uL; Monocyte% 7.4 % (0-10); NRBC Flagged by Analyzer 0 % (0-5); Neutrophil % 53.6 % (47-70); Platelet Count 319 K/mm3 (150-450); RBC Distribution Width CV 14.4 % (11.6-14.6); RBC Distribution Width SD 46.5 fl (35.1-43.9); Red Blood Count 2.45 M/mm3 (4.2-5.4); White Blood Count 7.5 K/mm3 (4.4-11.0)
[2022-03-20 06:34] VITALS: O2SAT 96
[2022-03-20] MEDS: Polyethylene Glycol 3350 17 GM PACKET PO (06:35)
[2022-03-20] MEDS: Senna/Docusate Sodium 1 Tablet 2 TABLET PO (06:37)
[2022-03-20] MEDS: dilTIAZem CD 120 MG Capsule PO ×2 (06:37→17:43)
[2022-03-20] MEDS: Levothyroxine 75 MCG Tablet PO (06:37)
[2022-03-20] MEDS: Lisinopril 2.5 MG Tablet PO (06:37)
[2022-03-20] MEDS: Menthol/Lanolin/Calamine/Znox 113 GM Tube 1 APPLIC TOPICAL ×2 (06:44→17:39)
--- NOTE | 2022-03-20 07:37 | NURSING ---
03/20: Pt pleasant this shift. Had difficulty swallowing morning medications d/t her mouth feeling very dry. Expresses desire to take morning medications in pudding when possible.
[2022-03-20] MEDS: Acetaminophen 500 MG Tablet 1000 MG PO ×2 (08:43→17:42)
[2022-03-20] MEDS: Iron Polysaccharide Complex 150 MG CAPSULE PO (08:44)
[2022-03-20] MEDS: COVID-19 VACC, MRNA(PFIZER)/PF 30 MCG/0.3 ML SYRINGE IM (09:14)
--- NOTE | 2022-03-20 09:24 | NURSING ---
PT GIVEN PFIZER BOOSTER IN RIGHT DELT. PT TOLERATED WELL. WILL MONITOR.
--- NOTE | 2022-03-20 09:41 | NURSING ---
Dr Marcus gave order to DC waqas on March 27, has appt on April 02 for f/u.
[2022-03-20 10:00] VITALS: RESP 18
[2022-03-20 14:00] VITALS: BP 92/44; PULSE 69; RESP 14; TEMP 36.7; O2SAT 98
--- NOTE | 2022-03-20 16:05 | CHAPLAIN ---
Type of Pastoral Visit _x__ Initial Visit ___ Follow-up Visit ___ On-call Visit ___ General Patient Visit ___ Spiritual Assessment ___ Family Conference ___ Bereavement ___ Rapid Response ___ Code Blue ___ Other (describe below) Pastoral Care Referral From _x__ Patient ___ Family ___ Nurse ___ Physician ___ Flight Paramedic ___ Public Transportation Inspector ___ Other (describe below) Sacrament/Intervention _x__ Active listening ___ Anointing ___ Mu-Ism ___ Bereavement ___ Communion ___ Sharri exploration ___ _x__ Life review _x__ Prayer ___ Reconciliation ___ Sacrament of Sick _x__ Supportive presence ___ Wedding ___ Other (describe below) Pastoral Comments met this patient prior to her surgery when she was in PCU; pt is welcoming of spiritual care and general visits; pt is talkative about her life and has a goal to work again
[2022-03-20 17:47] VITALS: BP 118/69; PULSE 76
--- NOTE | 2022-03-20 18:50 | NURSING ---
CALLED AND UPDATED DAUGHTER ON PT. DAUGHTER THANKFUL AND STATED SHE WOULD BE IN FOR PLAN OF CARE MEETING TOMORROW.
[2022-03-20] MEDS: Primidone 50 MG Tablet PO (21:09)
[2022-03-21] MEDS: dilTIAZem CD 120 MG Capsule PO ×2 (05:02→17:54)
[2022-03-21] MEDS: Levothyroxine 75 MCG Tablet PO (05:04)
[2022-03-21] MEDS: Lisinopril 2.5 MG Tablet PO (05:04)
[2022-03-21] MEDS: Menthol/Lanolin/Calamine/Znox 113 GM Tube 1 APPLIC TOPICAL ×2 (05:06→17:57)
[2022-03-21] MEDS: Iron Polysaccharide Complex 150 MG CAPSULE PO (08:08)
--- NOTE | 2022-03-21 11:02 | CASEMGMT ---
Addendum entered by Breanne Anderson 03/21/22 16:37: Dtr provided SW with completed RUFINO fawad. Faxed to [email or web address]. Original Note: Social Work IDT met with patient and dtr for care plan meeting. Discussed patient's progress in PT/OT and nursing. Pt is NWBS LUE. Pt is max x2-dependent for ADLs. Explained [employer] insurance with NRD 03/26 and continued stay is not guaranteed. Pt lives at home with dtr, but dtr works 2nd shift. Provided medical alert resources per pt request during initial assessment. Inquired about alternative DC plan. Pt does not want to go to a SNF, but dtr agrees, if pt is x2 assist, she needs to go to a SNF. If pt is x1, dtr can assist during the day, but will need to hire LINOTYPER for nighttime. Provided in-network SNF list with quality and resource data, private duty LINOTYPER list. Explained financial liability. Pt unsure if she can pay for SNF OOP. Provided RUFINO application for dtr to assist with pt on completing. Encouraged to provide RUFINO fawad and SNF choices by the end of the week. SW to continue to follow. Breanne Anderson, MANAGER MAINTENANCE BEER MAKER
[2022-03-21 13:46] VITALS: BP 105/51; PULSE 85; RESP 16; O2SAT 99
[2022-03-21] MEDS: Primidone 50 MG Tablet PO (20:06)
[2022-03-22] MEDS: Levothyroxine 75 MCG Tablet PO (05:34)
[2022-03-22] MEDS: Lisinopril 2.5 MG Tablet PO (05:34)
[2022-03-22] MEDS: dilTIAZem CD 120 MG Capsule PO ×2 (05:34→17:28)
[2022-03-22] MEDS: Menthol/Lanolin/Calamine/Znox 113 GM Tube 1 APPLIC TOPICAL ×2 (05:36→17:28)
[2022-03-22 05:47] LABS: Hematocrit 22.7 % (37-47); Hemoglobin 7.3 g/dL (12.0-15.0)
[2022-03-22] MEDS: Iron Polysaccharide Complex 150 MG CAPSULE PO (08:14)
--- NOTE | 2022-03-22 13:56 | NURSING ---
Therapy reported to this nurse that pt is c/o pain in cecile shins. Upon assessment this nurse noted that pt has tenderness to cecile shins and to cecile calf, nonpitting edema noted to BLE, slight pinkish discoloration and not warm to touch, pt prescribed eliquis but has been refusing the last few days d/t hgb, message left for Dr. Bowen.
[2022-03-22 14:00] VITALS: BP 105/50; PULSE 77; RESP 15; TEMP 35.8; O2SAT 100
--- NOTE | 2022-03-22 15:09 | MDS.RN ---
Pain interview for mitesh 03/23/22 completed.
[2022-03-22 17:29] VITALS: BP 115/66; PULSE 76
[2022-03-22] MEDS: Primidone 50 MG Tablet PO (21:19)
[2022-03-22 22:44] VITALS: RESP 18
[2022-03-23 05:40] VITALS: PULSE 80; RESP 16; O2SAT 99
[2022-03-23] MEDS: dilTIAZem CD 120 MG Capsule PO ×2 (05:52→17:28)
[2022-03-23] MEDS: APIXABAN 2.5 MG TABLET PO (05:53)
[2022-03-23] MEDS: Lisinopril 2.5 MG Tablet PO (05:54)
[2022-03-23] MEDS: Levothyroxine 75 MCG Tablet PO (05:54)
[2022-03-23] MEDS: Senna/Docusate Sodium 1 Tablet 2 TABLET PO (05:55)
[2022-03-23] MEDS: Menthol/Lanolin/Calamine/Znox 113 GM Tube 1 APPLIC TOPICAL ×2 (05:56→21:49)
[2022-03-23] MEDS: Iron Polysaccharide Complex 150 MG CAPSULE PO (07:56)
--- NOTE | 2022-03-23 10:38 | NURSING ---
PT LEFT FLOOR AT 0825 FOR A BLOOD TRANSFUSION.
[2022-03-23 14:00] VITALS: BP 113/56; PULSE 79; RESP 14; TEMP 36.7; O2SAT 98
--- NOTE | 2022-03-23 14:04 | NURSING ---
PT RETURNED TO FLOOR FROM GETTING BLOOD AT 1400. PT DOING WELL AND CRACKING JOKES.
--- NOTE | 2022-03-23 14:39 | NURSING ---
CALLED DAUGHTER AND UPDATED HER ON HER MOM.
--- NOTE | 2022-03-23 15:11 | CASEMGMT ---
Social Work Notified by RUFINO that pt is over resources and would need to spend down by paying first month privately at SNF. Spoke with pt. Pt elects to DC home and hire a BIOMETRY TEACHER in the evenings. Encouraged to begin contacting to secure aid. Pt expressed understanding. Breanne Anderson, GUN MECHANIC CORPORATE LEGAL SECRETARY
--- NOTE | 2022-03-23 16:50 | NURSING ---
doppler negative per mechatronics technician
[2022-03-23] MEDS: Primidone 50 MG Tablet PO (21:49)
[2022-03-24] MEDS: Polyethylene Glycol 3350 17 GM PACKET PO (05:52)
[2022-03-24] MEDS: Menthol/Lanolin/Calamine/Znox 113 GM Tube 1 APPLIC TOPICAL ×2 (05:52→17:24)
[2022-03-24] MEDS: APIXABAN 2.5 MG TABLET PO ×2 (06:00→17:23)
[2022-03-24] MEDS: Lisinopril 2.5 MG Tablet PO (06:01)
[2022-03-24] MEDS: Levothyroxine 75 MCG Tablet PO (06:01)
[2022-03-24] MEDS: Senna/Docusate Sodium 1 Tablet 2 TABLET PO (06:01)
[2022-03-24] MEDS: dilTIAZem CD 120 MG Capsule PO ×2 (06:02→17:23)
[2022-03-24 06:52] LABS: Absolute Lymphocyte Count 2.05 X10^3/uL (0.83-4.51); Absolute Neutrophil Count 5.2 X10^3/uL (2.0-7.7); Basophil# 0.06 X10^3/uL; Basophil% 0.7 % (0-1); Eosinophil# 0.15 X10^3/uL; Eosinophils% 1.8 % (0-5); Hematocrit 35.3 % (37-47); Hemoglobin 11.5 g/dL (12.0-15.0); Lymphocyte # 2.05 X10^3/ul (0.83-4.51); Lymphocyte % 25.1 % (19-41); Mean Corp Hgb Conc 32.6 g/dL (32-36); Mean Corpuscular Hgb 29.9 pg (27.0-32.0); Mean Corpuscular Volume 91.7 fL (81-99); Mean Platelet Vol. 9.6 fl (6.2-12.0); Monocyte# 0.64 X10^3/uL; Monocyte% 7.8 % (0-10); NRBC Flagged by Analyzer 0 % (0-5); Neutrophil % 63.6 % (47-70); Platelet Count 469 K/mm3 (150-450); RBC Distribution Width CV 18.2 % (11.6-14.6); RBC Distribution Width SD 57.4 fl (35.1-43.9); Red Blood Count 3.85 M/mm3 (4.2-5.4); White Blood Count 8.2 K/mm3 (4.4-11.0)
[2022-03-24 07:20] LABS: Anion Gap 6 (5-15); BUN 20 mg/dL (7-18); Chloride 102 mmol/L (98-107); EST Glomerular Filtration Rate 74 mL/min (>60); Est Glom Filt Rate - Afr Amer 90 mL/min (>60); Estimated Creatinine Clearance 48.06 ml/min; Glucose 103 mg/dL (74-106); Potassium 4.3 mmol/L (3.5-5.1); Sodium Level 134 mmol/L (136-145)
[2022-03-24] MEDS: Iron Polysaccharide Complex 150 MG CAPSULE PO (07:45)
[2022-03-24] MEDS: Acetaminophen 500 MG Tablet 1000 MG PO (07:50)
[2022-03-24] MEDS: Tuberculin,Purif.prot.deriv. 50 TU/ML Vial 0.1 ML ID (10:05)
[2022-03-24 13:39] LABS: Absolute Lymphocyte Count 2.06 X10^3/uL (0.83-4.51); Basophil# 0.06 X10^3/uL; Basophil% 0.6 % (0-1); Eosinophil# 0.12 X10^3/uL; Eosinophils% 1.2 % (0-5); Hematocrit 34.5 % (37-47); Hemoglobin 11.3 g/dL (12.0-15.0); Lymphocyte # 2.06 X10^3/ul (0.83-4.51); Lymphocyte % 20.4 % (19-41); Mean Corp Hgb Conc 32.8 g/dL (32-36); Mean Corpuscular Hgb 29.9 pg (27.0-32.0); Mean Corpuscular Volume 91.3 fL (81-99); Mean Platelet Vol. 9.1 fl (6.2-12.0); Monocyte% 7.9 % (0-10); NRBC Flagged by Analyzer 0 % (0-5); Neutrophil # 7.01 X10^3/uL (2.7-7.7); Neutrophil % 69.2 % (47-70); Platelet Count 441 K/mm3 (150-450); RBC Distribution Width CV 17.9 % (11.6-14.6); RBC Distribution Width SD 55.5 fl (35.1-43.9); Red Blood Count 3.78 M/mm3 (4.2-5.4); White Blood Count 10.1 K/mm3 (4.4-11.0)
[2022-03-24 14:00] VITALS: BP 103/56; PULSE 67; RESP 18; TEMP 36.2; O2SAT 100
[2022-03-24] MEDS: Primidone 50 MG Tablet PO (19:55)
[2022-03-25] MEDS: dilTIAZem CD 120 MG Capsule PO ×2 (04:28→17:18)
[2022-03-25] MEDS: Lisinopril 2.5 MG Tablet PO (04:28)
[2022-03-25] MEDS: APIXABAN 2.5 MG TABLET PO ×2 (04:28→17:17)
[2022-03-25] MEDS: Levothyroxine 75 MCG Tablet PO (04:28)
[2022-03-25] MEDS: Menthol/Lanolin/Calamine/Znox 113 GM Tube 1 APPLIC TOPICAL ×2 (04:31→17:18)
[2022-03-25] MEDS: Iron Polysaccharide Complex 150 MG CAPSULE PO (08:09)
[2022-03-25] MEDS: Acetaminophen 500 MG Tablet 1000 MG PO ×2 (13:21→21:08)
[2022-03-25 14:00] VITALS: BP 113/60; PULSE 70; RESP 18; TEMP 36.2; O2SAT 99
[2022-03-25] MEDS: Primidone 50 MG Tablet PO (21:08)
[2022-03-26] MEDS: Acetaminophen 500 MG Tablet 1000 MG PO (05:24)
[2022-03-26] MEDS: dilTIAZem CD 120 MG Capsule PO ×2 (05:25→17:53)
[2022-03-26] MEDS: APIXABAN 2.5 MG TABLET PO ×2 (05:25→17:53)
[2022-03-26] MEDS: Lisinopril 2.5 MG Tablet PO (05:25)
[2022-03-26] MEDS: Menthol/Lanolin/Calamine/Znox 113 GM Tube 1 APPLIC TOPICAL ×2 (05:26→17:47)
[2022-03-26] MEDS: Iron Polysaccharide Complex 150 MG CAPSULE PO (08:51)
--- NOTE | 2022-03-26 09:01 | NURSING ---
PT ASKED IF SALINE LOCK COULD BE TAKEN OUT IN WRIST, DUE TO IT BOTHERING HER AND HURTS WHEN ONLY BEING ABLE TO USE LEFT ARM. THIS NURSE REMOVED SALINE LOCK. RN AWARE.
[2022-03-26 11:20] VITALS: PULSE 71; RESP 18; O2SAT 99
--- NOTE | 2022-03-26 12:03 | CASEMGMT ---
Social Work BIMS and PHQ-9 completed for MDS assessment. Breanne Anderson, DELIVERY LEAD ANTITANK ASSAULT GUNNER
[2022-03-26 14:00] VITALS: BP 113/63; PULSE 71; RESP 16; TEMP 36.1; O2SAT 99
[2022-03-26] MEDS: Primidone 50 MG Tablet PO (20:47)
[2022-03-27] MEDS: APIXABAN 2.5 MG TABLET PO ×2 (05:01→17:51)
[2022-03-27] MEDS: Levothyroxine 75 MCG Tablet PO (05:03)
[2022-03-27] MEDS: Lisinopril 2.5 MG Tablet PO (05:03)
[2022-03-27] MEDS: Menthol/Lanolin/Calamine/Znox 113 GM Tube 1 APPLIC TOPICAL ×2 (05:10→17:51)
[2022-03-27] MEDS: dilTIAZem CD 120 MG Capsule PO ×2 (05:11→17:52)
--- NOTE | 2022-03-27 05:21 | NURSING ---
This nurse removed 10 waqas removed per physician's order. No bleeding or drainage noted on surgical incision. Pt tolerated well.
--- NOTE | 2022-03-27 05:32 | NURSING ---
This nurse removed 10 waqas per physician's order. No bleeding or drainage noted on surgical incision. Pt tolerated well.
[2022-03-27] MEDS: Iron Polysaccharide Complex 150 MG CAPSULE PO (08:18)
[2022-03-27] MEDS: Nystatin Powder 15gm Bottle 1 APPLIC TOPICAL ×2 (08:18→17:52)
[2022-03-27 14:00] VITALS: BP 118/62; PULSE 69; RESP 16; TEMP 36.5; O2SAT 97
[2022-03-27] MEDS: Primidone 50 MG Tablet PO ×2 (20:22→20:29)
[2022-03-28] MEDS: Lisinopril 2.5 MG Tablet PO (05:29)
[2022-03-28] MEDS: APIXABAN 2.5 MG TABLET PO ×2 (05:29→18:14)
[2022-03-28] MEDS: Menthol/Lanolin/Calamine/Znox 113 GM Tube 1 APPLIC TOPICAL ×2 (05:29→18:15)
[2022-03-28] MEDS: dilTIAZem CD 120 MG Capsule PO ×2 (05:29→18:14)
[2022-03-28] MEDS: Levothyroxine 75 MCG Tablet PO (05:29)
[2022-03-28] MEDS: Nystatin Powder 15gm Bottle 1 APPLIC TOPICAL (05:30)
[2022-03-28] MEDS: Iron Polysaccharide Complex 150 MG CAPSULE PO (08:10)
[2022-03-28] MEDS: Cholecalciferol (Vit D3) 125 MCG CAPSULE (5,000 UNITS) PO (14:45)
[2022-03-28] MEDS: Acetaminophen 500 MG Tablet 1000 MG PO (18:18)
[2022-03-28 23:21] VITALS: PULSE 74; RESP 16; O2SAT 98
[2022-03-29] MEDS: Cholecalciferol (Vit D3) 125 MCG CAPSULE (5,000 UNITS) PO (05:13)
[2022-03-29] MEDS: Lisinopril 2.5 MG Tablet PO (05:13)
[2022-03-29] MEDS: APIXABAN 2.5 MG TABLET PO ×2 (05:13→17:30)
[2022-03-29] MEDS: Levothyroxine 75 MCG Tablet PO (05:13)
[2022-03-29] MEDS: dilTIAZem CD 120 MG Capsule PO ×2 (05:14→17:30)
[2022-03-29] MEDS: Menthol/Lanolin/Calamine/Znox 113 GM Tube 1 APPLIC TOPICAL ×2 (05:14→17:31)
[2022-03-29] MEDS: Acetaminophen 500 MG Tablet 1000 MG PO (05:16)
[2022-03-29] MEDS: Iron Polysaccharide Complex 150 MG CAPSULE PO (08:13)
--- NOTE | 2022-03-29 13:18 | MDS.RN ---
Information for the mds was obtained from review of the clinical record, interview of resident, staff, and direct observation of resident's care.
[2022-03-29 14:00] VITALS: BP 129/64; PULSE 68; RESP 14; TEMP 36.6; O2SAT 100
[2022-03-29] MEDS: Nystatin Powder 15gm Bottle 1 APPLIC TOPICAL (17:31)
[2022-03-29] MEDS: Primidone 50 MG Tablet PO (22:04)
[2022-03-30] MEDS: Acetaminophen 500 MG Tablet 1000 MG PO (05:17)
[2022-03-30] MEDS: Nystatin Powder 15gm Bottle 1 APPLIC TOPICAL ×2 (05:18→17:17)
[2022-03-30] MEDS: dilTIAZem CD 120 MG Capsule PO ×2 (05:18→17:16)
[2022-03-30] MEDS: Lisinopril 2.5 MG Tablet PO (05:18)
[2022-03-30] MEDS: Cholecalciferol (Vit D3) 125 MCG CAPSULE (5,000 UNITS) PO (05:18)
[2022-03-30] MEDS: APIXABAN 2.5 MG TABLET PO ×2 (05:18→17:16)
[2022-03-30] MEDS: Menthol/Lanolin/Calamine/Znox 113 GM Tube 1 APPLIC TOPICAL ×2 (05:18→17:16)
[2022-03-30] MEDS: Levothyroxine 75 MCG Tablet PO (05:18)
[2022-03-30] MEDS: Iron Polysaccharide Complex 150 MG CAPSULE PO (09:04)
[2022-03-30 14:00] VITALS: BP 121/66; PULSE 62; RESP 14; TEMP 36.8; O2SAT 97
--- NOTE | 2022-03-30 17:58 | NURSING ---
Pt and family notified of staff member and another pt testing positive for covid.
[2022-03-30] MEDS: traMADol 50 MG Tablet PO (21:02)
[2022-03-30] MEDS: Primidone 50 MG Tablet PO (21:06)
[2022-03-31] MEDS: Nystatin Powder 15gm Bottle 1 APPLIC TOPICAL ×2 (06:47→20:59)
[2022-03-31] MEDS: Levothyroxine 75 MCG Tablet PO (06:47)
[2022-03-31] MEDS: APIXABAN 2.5 MG TABLET PO ×2 (06:47→17:59)
[2022-03-31] MEDS: Lisinopril 2.5 MG Tablet PO (06:47)
[2022-03-31] MEDS: dilTIAZem CD 120 MG Capsule PO ×2 (06:47→17:59)
[2022-03-31] MEDS: Menthol/Lanolin/Calamine/Znox 113 GM Tube 1 APPLIC TOPICAL ×2 (06:48→20:59)
[2022-03-31] MEDS: Cholecalciferol (Vit D3) 125 MCG CAPSULE (5,000 UNITS) PO (06:49)
[2022-03-31 06:52] VITALS: BP 115/60; PULSE 62; RESP 16; TEMP 36.4; O2SAT 97
[2022-03-31 06:52] LABS: Absolute Lymphocyte Count 2.05 X10^3/uL (0.83-4.51); Absolute Neutrophil Count 2.6 X10^3/uL (2.0-7.7); Basophil# 0.04 X10^3/uL; Basophil% 0.8 % (0-1); Eosinophil# 0.12 X10^3/uL; Eosinophils% 2.3 % (0-5); Hematocrit 32.5 % (37-47); Hemoglobin 10.4 g/dL (12.0-15.0); Lymphocyte # 2.05 X10^3/ul (0.83-4.51); Mean Corpuscular Volume 93.7 fL (81-99); Mean Platelet Vol. 9.6 fl (6.2-12.0); Monocyte# 0.46 X10^3/uL; Monocyte% 8.8 % (0-10); NRBC Flagged by Analyzer 0 % (0-5); Neutrophil # 2.57 X10^3/uL (2.7-7.7); Neutrophil % 48.9 % (47-70); Platelet Count 358 K/mm3 (150-450); RBC Distribution Width CV 15.4 % (11.6-14.6); RBC Distribution Width SD 52.5 fl (35.1-43.9); Red Blood Count 3.47 M/mm3 (4.2-5.4); White Blood Count 5.3 K/mm3 (4.4-11.0)
[2022-03-31] MEDS: traMADol 50 MG Tablet PO (06:55)
[2022-03-31 07:40] LABS: Anion Gap 5 (5-15); BUN 21 mg/dL (7-18); BUN/Creat Ratio 31.2 RATIO (10-20); Calcium,Total 8.5 mg/dL (8.5-10.1); Chloride 104 mmol/L (98-107); Creatinine, Serum 0.67 mg/dL (0.55-1.02); EST Glomerular Filtration Rate 91 mL/min (>60); Est Glom Filt Rate - Afr Amer 110 mL/min (>60); Estimated Creatinine Clearance 38.44 ml/min; Glucose 101 mg/dL (74-106); Potassium 4.1 mmol/L (3.5-5.1); Sodium Level 136 mmol/L (136-145)
[2022-03-31] MEDS: Iron Polysaccharide Complex 150 MG CAPSULE PO (08:40)
[2022-03-31 09:40] VITALS: PULSE 59; RESP 18; O2SAT 97
[2022-03-31 14:00] VITALS: BP 119/59; PULSE 58; RESP 17; TEMP 35.7; O2SAT 97
--- NOTE | 2022-03-31 14:21 | NURSING ---
this nurse trimmed pt finger and toe nails per pt request. pt thnaked this nurse and stated that it feels much better.
[2022-03-31] MEDS: Senna/Docusate Sodium 1 Tablet 2 TABLET PO (17:58)
[2022-03-31] MEDS: Primidone 50 MG Tablet PO (21:01)
[2022-04-01] MEDS: Menthol/Lanolin/Calamine/Znox 113 GM Tube 1 APPLIC TOPICAL ×2 (05:21→17:13)
[2022-04-01] MEDS: Nystatin Powder 15gm Bottle 1 APPLIC TOPICAL ×2 (05:21→20:06)
[2022-04-01] MEDS: dilTIAZem CD 120 MG Capsule PO ×2 (05:22→17:15)
[2022-04-01] MEDS: APIXABAN 2.5 MG TABLET PO ×2 (05:22→17:14)
[2022-04-01] MEDS: Lisinopril 2.5 MG Tablet PO (05:23)
[2022-04-01] MEDS: Cholecalciferol (Vit D3) 125 MCG CAPSULE (5,000 UNITS) PO (05:23)
[2022-04-01] MEDS: Iron Polysaccharide Complex 150 MG CAPSULE PO (07:58)
[2022-04-01] MEDS: Bisacodyl 5 MG Tablet 10 MG PO (08:00)
[2022-04-01] MEDS: Acetaminophen 500 MG Tablet 1000 MG PO ×2 (08:00→20:05)
[2022-04-01 14:00] VITALS: BP 119/61; PULSE 62; RESP 15; TEMP 35.7; O2SAT 92
[2022-04-01] MEDS: Primidone 50 MG Tablet PO (20:05)
[2022-04-01 21:20] VITALS: PULSE 66
[2022-04-02] MEDS: Lisinopril 2.5 MG Tablet PO (06:30)
[2022-04-02] MEDS: Levothyroxine 75 MCG Tablet PO (06:30)
[2022-04-02] MEDS: dilTIAZem CD 120 MG Capsule PO ×2 (06:30→17:30)
[2022-04-02] MEDS: APIXABAN 2.5 MG TABLET PO ×2 (06:30→17:30)
[2022-04-02] MEDS: Cholecalciferol (Vit D3) 125 MCG CAPSULE (5,000 UNITS) PO (06:30)
[2022-04-02] MEDS: Nystatin Powder 15gm Bottle 1 APPLIC TOPICAL ×2 (06:34→17:29)
[2022-04-02] MEDS: Menthol/Lanolin/Calamine/Znox 113 GM Tube 1 APPLIC TOPICAL ×2 (06:35→17:29)
[2022-04-02] MEDS: Iron Polysaccharide Complex 150 MG CAPSULE PO (08:32)
[2022-04-02] MEDS: Acetaminophen 500 MG Tablet 1000 MG PO (08:32)
[2022-04-02 14:00] VITALS: BP 100/59; PULSE 67; RESP 20; TEMP 36.5; O2SAT 98
--- NOTE | 2022-04-02 16:59 | NURSING ---
Pt returned from appt. new order for WBAT to left hip. Left wrist okay for ROM, Brace okay to remove for exercises and hygiene. L shoulder D/C sling begin ROM exercises likely begin weight bearing with walker in 3 weeks. F/U in 3 weeks with XR's Plan for telehealth visit.
[2022-04-02] MEDS: Senna/Docusate Sodium 1 Tablet 2 TABLET PO (17:30)
[2022-04-02] MEDS: Primidone 50 MG Tablet PO (20:55)
[2022-04-03] MEDS: Acetaminophen 500 MG Tablet 1000 MG PO ×3 (05:28→20:44)
[2022-04-03] MEDS: APIXABAN 2.5 MG TABLET PO ×2 (05:29→17:11)
[2022-04-03] MEDS: dilTIAZem CD 120 MG Capsule PO ×2 (05:29→17:11)
[2022-04-03] MEDS: Cholecalciferol (Vit D3) 125 MCG CAPSULE (5,000 UNITS) PO (05:30)
[2022-04-03] MEDS: Lisinopril 2.5 MG Tablet PO (05:30)
[2022-04-03] MEDS: Levothyroxine 75 MCG Tablet PO (05:30)
[2022-04-03] MEDS: Nystatin Powder 15gm Bottle 1 APPLIC TOPICAL ×2 (05:34→17:11)
[2022-04-03] MEDS: Menthol/Lanolin/Calamine/Znox 113 GM Tube 1 APPLIC TOPICAL ×2 (05:34→17:10)
[2022-04-03] MEDS: Iron Polysaccharide Complex 150 MG CAPSULE PO (08:23)
--- NOTE | 2022-04-03 13:43 | CASEMGMT ---
Social Work Updated pt that insurance NRD 04/06 and continued stay is not guaranteed. Pt requesting to DC home 04/07. IDT agreeable. Pt requesting hemiwalker. Referred to [facility]. Provided skilled HHC list with quality and resource data. Pt prefers [facility] [place]. Referral made for PT/OT/YAN. Dtr to transport. Plan: DC home with dtr 04/07, [facility] [place] PT/OT/YAN, BRAVO MathewsW
[2022-04-03 14:00] VITALS: BP 101/61; PULSE 61; RESP 16; TEMP 36.7; O2SAT 97
[2022-04-03 17:12] VITALS: BP 112/67; PULSE 62
[2022-04-03 20:30] VITALS: BP 114/68; PULSE 58; RESP 16; TEMP 36.4; O2SAT 98
[2022-04-03] MEDS: Primidone 50 MG Tablet PO (20:44)
--- NOTE | 2022-04-03 21:22 | DS.PCM_ITS ---
Providers Date of Admission: 03/16/22 Primary Care Physician: ROMAINE RamosC Reason For Visit: CLOSED LEFT HIP FRACTURE Diagnosis Discharge Diagnosis (1) Debility: Status: Acute Code(s): R53.81 - Other malaise (2) Fall: Status: Acute Code(s): W19.XXXA - Unspecified fall, initial encounter (3) Closed hip fracture: Code(s): S72.009A - Fracture of unspecified part of neck of unspecified femur, initial encounter for closed fracture (4) Colles' fracture: Code(s): S52.539A - Colles' fracture of unspecified radius, initial encounter for closed fracture (5) Fracture of proximal end of humerus: Code(s): S42.209A - Unspecified fracture of upper end of unspecified humerus, initial encounter for closed fracture (6) Hypertension: Status: Chronic Code(s): I10 - Essential (primary) hypertension (7) Hypothyroidism: Status: Acute Code(s): E03.9 - Hypothyroidism, unspecified (8) Osteoporosis: Status: Acute Code(s): M81.0 - Age-related osteoporosis without current pathological fracture Medications at Discharge Home Medications levothyroxine 75 mcg PO MOTUWETHFRSA 05/31/14 lisinopril 2.5 mg PO DAILY 02/02/17 diltiazem HCl [Cardizem] 120 mg PO BID 10/04/17 Eliquis 2.5 mg PO BID 11 Days #22 tab 04/03/22 acetaminophen 1,000 mg PO Q6H PRN PRN #0 tab 04/03/22 cholecalciferol (vitamin D3) 125 mcg PO DAILY 30 Days #30 cap 04/03/22 polysaccharide iron complex [Ferrex 150] 150 mg PO DAILYCM 30 Days #30 cap 04/03/22 primidone 50 mg PO QHS 30 Days #30 tab 04/03/22 Hospital Course Operations - (Left hip intramedullary nail.) Procedures - (Closed reduction left distal radius fracture.) Summary of Care Provided Minutes Spent on Discharge: 35 Hospital Course: 76 year old female with below past medical history hospitalized after fall, left proximal humerus fracture treated with sling, left distal radius fracture treated with closed reduction with application of splint, left h ip fracture treated with intramedullary nail fixation 03/13/[address] Marcus, admitted to TCU with debility, here for rehabilitation, strengthening, prior to discharge home alone. Discharge home with daughter 04/07/2022, [facility] Care PT/OT/YANAureliano. Physical Exam Const alert General Appearance: cooperative HEENT normocephalic Eyes PERRL and EOMs intact bilaterally Neck supple, no JVD and no carotid bruits Resp normal respiratory effort, normal air movement and clear to auscultation bilaterally Cardio regular rate and regular rhythm GI normal to inspection, nondistended, normoactive bowel sounds, non-tender and non-distended Extremity normal capillary refill General Extremity: Negative for edema Skin no rashes or lesions noted General Skin Exam: no breakdown Psych affect normal Appearance: appropriate Weight / BMI Weight Weight: 68.356 kg Body Mass Index (BMI) 23.8 ABG / Lab / Microbiology Data Result Diagrams: 03/31/22 06:05 03/31/22 06:05 Microbiology: Microbiology 04/02/22 12:50 Nasal Secretion SARS-CoV-2 Antigen (Rapid) - Final 03/30/22 12:55 Nasal Secretion SARS-CoV-2 Antigen (Rapid) - Final 03/23/22 05:20 Nasal Secretion SARS-CoV-2 Antigen (Rapid) - Final D/C Instructions Discharge Diet: No restrictions Discharge Activity: Return to Normal Activity, May Shower and Use Walker Weight Bearing Status: Weight bearing as tolerated Call your doctor if you observe: Fever of 101 or Higher, Inability to urinate, Inability to have a bowel movement, Shortness of breath, Dizziness, Fainting spells, Swelling in the ankles, Chest pain and Uncontrolled pain Additional Instructions: Discharge home with daughter 04/07/2022, [facility] Care PT/OT/YANAureliano. Please Follow Up With: Gary Marcus DO When: As scheduled. Meaningful Use Info Meaningful Use Diagnoses (Choose all that apply): None applicable Discharge Plan Admission Admit Date/Time: 03/16/22 12:50 Primary Reason for Your Visit: Debility. Attending Provider: Manuel Bowen Chi Primary Care Provider: Tanya Garcia NP Instructions Additional Instructions / Restrictions: Discharge home with daughter 04/07/2022, [facility] Care PT/OT/YAN, Hemiwalker. Discharge Orders/Prescriptions Prescriptions: New primidone 50 mg Tablet 50 mg PO QHS 30 Days Qty: 30 RF: 0 polysaccharide iron complex [Ferrex 150] 150 mg iron Capsule 150 mg PO DAILYCM 30 Days Qty: 30 RF: 0 acetaminophen 500 mg Tablet 1,000 mg PO Q6H PRN PRN (Reason: Pain Score 1-3) Qty: 0 RF: 0 cholecalciferol (vitamin D3) 125 mcg (5,000 unit) Capsule 125 mcg PO DAILY 30 Days Qty: 30 RF: 0 Continued levothyroxine 25 MCG tablet 75 mcg PO MOTUWETHFRSA RF: 0 lisinopril 2.5 MG tablet 2.5 mg PO DAILY RF: 0 diltiazem HCl [Cardizem] 120 MG tablet 120 mg PO BID RF: 0 Eliquis 2.5 mg tablet 2.5 mg PO BID 11 Days Qty: 22 RF: 0 Discontinued oxycodone 5 mg tablet 5 mg PO Q6H PRN (Reason: pain) 3 Days Qty: 12 RF: 0 Referrals / Follow Up: Gary Marcus DO [STAFF PHYSICIAN] - (follow up in 3 weeks ) Tanya Garcia NP, DRAFTER ELECTROMECHANICAL-C [Primary Care Provider] - Disposition Disposition (needs filled in before D/C Order can be placed): Home Health Service
[2022-04-04] MEDS: Nystatin Powder 15gm Bottle 1 APPLIC TOPICAL ×2 (04:47→20:46)
[2022-04-04] MEDS: APIXABAN 2.5 MG TABLET PO ×2 (04:48→17:20)
[2022-04-04] MEDS: dilTIAZem CD 120 MG Capsule PO ×2 (04:48→17:19)
[2022-04-04] MEDS: Lisinopril 2.5 MG Tablet PO (04:49)
[2022-04-04] MEDS: Cholecalciferol (Vit D3) 125 MCG CAPSULE (5,000 UNITS) PO (04:49)
[2022-04-04] MEDS: Levothyroxine 75 MCG Tablet PO (04:49)
[2022-04-04] MEDS: Acetaminophen 500 MG Tablet 1000 MG PO ×2 (04:51→20:47)
[2022-04-04] MEDS: Menthol/Lanolin/Calamine/Znox 113 GM Tube 1 APPLIC TOPICAL ×2 (05:03→17:17)
[2022-04-04 06:00] VITALS: BP 120/50; PULSE 62; RESP 16; TEMP 36.7; O2SAT 98
[2022-04-04] MEDS: Iron Polysaccharide Complex 150 MG CAPSULE PO (08:57)
[2022-04-04] MEDS: traMADol 50 MG Tablet PO (09:02)
[2022-04-04 10:30] VITALS: PULSE 68; RESP 18; O2SAT 97
[2022-04-04 14:00] VITALS: BP 102/62; PULSE 59; RESP 16; TEMP 36.3; O2SAT 99
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
--- NOTE | 2022-04-04 16:33 | CASEMGMT ---
Social Work Completed advanced directives with pt. Pt named dtr as HCPOA. Original and copy provided to pt. Copies placed on chart. Breanne Anderson, CARBONATION EQUIPMENT TENDER ASSOCIATE PROFESSOR OF PSYCHOLOGY
[2022-04-04 17:22] VITALS: BP 126/66; PULSE 58
[2022-04-04] MEDS: Primidone 50 MG Tablet PO (20:46)
[2022-04-05 06:00] VITALS: BP 128/65; PULSE 61; RESP 16; TEMP 36.5; O2SAT 97
[2022-04-05] MEDS: Acetaminophen 500 MG Tablet 1000 MG PO ×2 (06:12→21:33)
[2022-04-05] MEDS: Cholecalciferol (Vit D3) 125 MCG CAPSULE (5,000 UNITS) PO (06:13)
[2022-04-05] MEDS: Lisinopril 2.5 MG Tablet PO (06:13)
[2022-04-05] MEDS: APIXABAN 2.5 MG TABLET PO ×2 (06:13→17:59)
[2022-04-05] MEDS: dilTIAZem CD 120 MG Capsule PO ×2 (06:13→17:59)
[2022-04-05] MEDS: Levothyroxine 75 MCG Tablet PO (06:13)
[2022-04-05] MEDS: Nystatin Powder 15gm Bottle 1 APPLIC TOPICAL ×2 (06:14→21:32)
[2022-04-05] MEDS: Menthol/Lanolin/Calamine/Znox 113 GM Tube 1 APPLIC TOPICAL ×2 (06:14→17:58)
[2022-04-05] MEDS: Iron Polysaccharide Complex 150 MG CAPSULE PO (08:16)
--- NOTE | 2022-04-05 10:56 | CASEMGMT ---
Social Work BIMS and PHQ-9 completed for MDS assessment. Breanne Anderson, STONEWORKING BELT SANDER MMA FIGHTER
[2022-04-05 14:00] VITALS: BP 133/72; PULSE 70; RESP 20; TEMP 37.4; O2SAT 97
--- NOTE | 2022-04-05 14:32 | MDS.RN ---
Pain interview for CHARLES 04/07/22 completed.
[2022-04-05 21:15] VITALS: BP 128/73; PULSE 61; RESP 16; TEMP 36.7; O2SAT 97
[2022-04-05] MEDS: Primidone 50 MG Tablet PO (21:33)
[2022-04-06] MEDS: Menthol/Lanolin/Calamine/Znox 113 GM Tube 1 APPLIC TOPICAL ×2 (06:38→17:25)
[2022-04-06] MEDS: Cholecalciferol (Vit D3) 125 MCG CAPSULE (5,000 UNITS) PO (06:39)
[2022-04-06] MEDS: Levothyroxine 75 MCG Tablet PO (06:39)
[2022-04-06] MEDS: Acetaminophen 500 MG Tablet 1000 MG PO ×2 (06:39→22:04)
[2022-04-06] MEDS: dilTIAZem CD 120 MG Capsule PO ×2 (06:39→17:21)
[2022-04-06] MEDS: APIXABAN 2.5 MG TABLET PO ×2 (06:39→17:21)
[2022-04-06] MEDS: Lisinopril 2.5 MG Tablet PO (06:39)
[2022-04-06] MEDS: Nystatin Powder 15gm Bottle 1 APPLIC TOPICAL ×2 (06:40→17:25)
[2022-04-06 06:45] VITALS: BP 117/73; PULSE 67; RESP 18; TEMP 36.6; O2SAT 98
[2022-04-06] MEDS: Iron Polysaccharide Complex 150 MG CAPSULE PO (08:14)
[2022-04-06 10:42] VITALS: PULSE 56; RESP 20; O2SAT 98
[2022-04-06 11:23] VITALS: BP 115/67; PULSE 56; RESP 20; TEMP 36.1; O2SAT 98
[2022-04-06] MEDS: Primidone 50 MG Tablet PO (22:06)
[2022-04-07] MEDS: Lisinopril 2.5 MG Tablet PO (05:56)
[2022-04-07] MEDS: Cholecalciferol (Vit D3) 125 MCG CAPSULE (5,000 UNITS) PO (05:56)
[2022-04-07] MEDS: APIXABAN 2.5 MG TABLET PO (05:56)
[2022-04-07] MEDS: dilTIAZem CD 120 MG Capsule PO (05:56)
[2022-04-07] MEDS: Acetaminophen 500 MG Tablet 1000 MG PO (05:56)
[2022-04-07] MEDS: Levothyroxine 75 MCG Tablet PO (05:56)
[2022-04-07] MEDS: Nystatin Powder 15gm Bottle 1 APPLIC TOPICAL (05:57)
[2022-04-07] MEDS: Menthol/Lanolin/Calamine/Znox 113 GM Tube 1 APPLIC TOPICAL (05:57)
[2022-04-07 07:03] LABS: Absolute Lymphocyte Count 1.64 X10^3/uL (0.83-4.51); Absolute Neutrophil Count 2.6 X10^3/uL (2.0-7.7); Basophil# 0.03 X10^3/uL; Basophil% 0.6 % (0-1); Eosinophil# 0.11 X10^3/uL; Eosinophils% 2.3 % (0-5); Hematocrit 31.8 % (37-47); Hemoglobin 10.3 g/dL (12.0-15.0); Lymphocyte # 1.64 X10^3/ul (0.83-4.51); Lymphocyte % 34.2 % (19-41); Mean Corp Hgb Conc 32.4 g/dL (32-36); Mean Corpuscular Hgb 30.5 pg (27.0-32.0); Mean Corpuscular Volume 94.1 fL (81-99); Monocyte# 0.44 X10^3/uL; Monocyte% 9.2 % (0-10); NRBC Flagged by Analyzer 0 % (0-5); Neutrophil # 2.57 X10^3/uL (2.7-7.7); Neutrophil % 53.5 % (47-70); Platelet Count 184 K/mm3 (150-450); RBC Distribution Width CV 15.3 % (11.6-14.6); RBC Distribution Width SD 52.3 fl (35.1-43.9); Red Blood Count 3.38 M/mm3 (4.2-5.4); White Blood Count 4.8 K/mm3 (4.4-11.0)
[2022-04-07 07:26] LABS: Anion Gap 6 (5-15); BUN 18 mg/dL (7-18); BUN/Creat Ratio 28.1 RATIO (10-20); Calcium,Total 8.6 mg/dL (8.5-10.1); Chloride 104 mmol/L (98-107); Creatinine, Serum 0.64 mg/dL (0.55-1.02); EST Glomerular Filtration Rate 96 mL/min (>60); Est Glom Filt Rate - Afr Amer 116 mL/min (>60); Estimated Creatinine Clearance 38.44 ml/min; Glucose 100 mg/dL (74-106); Potassium 3.6 mmol/L (3.5-5.1); Sodium Level 137 mmol/L (136-145)
[2022-04-07] MEDS: Iron Polysaccharide Complex 150 MG CAPSULE PO (08:08)
[2022-04-07 09:56] VITALS: BP 110/66; PULSE 58; RESP 18; TEMP 36.6; O2SAT 97
== END 2022-04-07 11:00 | disposition home health service (06) | DRG 561 ==
PROVIDERS: Admitting Provider Family Medicine Geriatric Medicine; PCP Nurse Practitioner; Visit Provider Family Medicine Geriatric Medicine
DX: S42.202D Unspecified fracture of upper end of left humerus, subsequent encounter for fracture with routine healing (principal); E03.9 Hypothyroidism, unspecified; I10 Essential (primary) hypertension; W01.0XXD Fall on same level from slipping, tripping and stumbling without subsequent striking against object, subsequent encounter; F17.290 Nicotine dependence, other tobacco product, uncomplicated; S52.532D Colles' fracture of left radius, subsequent encounter for closed fracture with routine healing; Z79.899 Other long term (current) drug therapy; Z79.01 Long term (current) use of anticoagulants; Z79.890 Hormone replacement therapy; M81.0 Age-related osteoporosis without current pathological fracture; Z23 Encounter for immunization
CPT/HCPCS: 0004A; 36415; 73562; 80048; 85014; 85018; 85025; 86850; 86900; 86901; 86920; 86922; 87426; 91300; 97110; 97116; 97162; 97166; 97530; 97535; 97802; 90670

== ENCOUNTER → 2022-03-23 | Outpatient (CLI) | payer MEDICARE, SELFPAY ==
--- NOTE | 2022-03-23 10:58 | VDLE_ITS ---
Reason For Study: swelling RIGHT LEFT GSV is normal. GSV is normal. CFV is compressible, spontaneous, phasic, CFV is compressible, spontaneous, phasic, competent and demonstrates normal competent, and demonstrates normal augmentation. augmentation. FV is compressible, spontaneous, phasic, FV is compressible, spontaneous, phasic, competent and demonstrates normal competent and demonstrates normal augmentation. augmentation. POP V is compressible, spontaneous, phasic, POP V is compressible, spontaneous, phasic, competent and demonstrates normal competent and demonstrates normal augmentation. augmentation. T/P Trunk is compressible. T/P Trunk is compressible. PTV is compressible. PTV is compressible. RT PerV is compressible. LT PerV is compressible. Procedure This is a venous duplex using B-mode, color flow and spectral Doppler. Exam performed portable in patient room. The exam was diagnostic. A preliminary report was called and/or faxed to the pt's nurse. VL/Venous Duplex US - [place] Extrem Interpretation Summary Deep veins of the lower extremities are bilaterally patent and compressible seg mentally. There is no evidence of deep vein thrombosis on either side. Valvular competence appears in tact within the proximal deep venous systems bilaterally. The great saphenous veins appear bila terally patent and compressible segmentally. Ordering Physician: Manuel Bowen Performed By: Benji Cowart RVElvin
== END | disposition home or self-care (01) ==
LOC: CVS 10:53
PROVIDERS: PCP Nurse Practitioner; Referring Provider Family Medicine Geriatric Medicine; Visit Provider Family Medicine Geriatric Medicine
DX: R60.0 Localized edema (principal)
CPT/HCPCS: 93970

== ENCOUNTER → 2022-03-23 | Outpatient (CLI) | payer MEDICARE, SELFPAY ==
[2022-03-23 08:33] VITALS: BP 102/50; PULSE 80; RESP 16; TEMP 36.9; O2SAT 97; BMI 23.8
[2022-03-23] MEDS: 0.9% NaCl Peripheral Flush Adult/Peds IV ×2 (08:47→10:57)
[2022-03-23 09:07] VITALS: BP 93/60; PULSE 79; RESP 16; TEMP 36.6; O2SAT 97
[2022-03-23 10:07] VITALS: BP 104/55; PULSE 70; RESP 16; TEMP 35.9
[2022-03-23 10:45] VITALS: BP 106/58; PULSE 70; RESP 16; TEMP 37.1; O2SAT 97
[2022-03-23] MEDS: Furosemide 20 MG/2 ML VIAL IV (10:57)
[2022-03-23 11:21] VITALS: BP 118/57; PULSE 70; RESP 16; TEMP 35.6
[2022-03-23 13:18] VITALS: BP 102/63; PULSE 75; RESP 16; TEMP 35.9
== END | disposition home or self-care (01) ==
LOC: MEDOUTP 08:30
PROVIDERS: PCP Nurse Practitioner; Referring Provider Family Medicine Geriatric Medicine; Visit Provider Family Medicine Geriatric Medicine
DX: D64.89 Other specified anemias (principal); R60.0 Localized edema
CPT/HCPCS: 36415; 36430; 86850; 86900; 86901; 86920; 86922; 93970; J7040; P9016; A4216; J1940

== ENCOUNTER → 2022-04-20 | Outpatient (CLI) | payer BC, SELFPAY ==
--- NOTE | 2022-04-20 13:42 | RAD_ITS ---
STUDY: XR Shoulder Min 2 Views REASON FOR EXAM: Female, 76 years old. FX TECHNIQUE: XR Shoulder Min 2 Views LEFT COMPARISON: 5.3.22 FINDINGS: Normal glenohumeral articulation. Normal acromioclavicular joint. Normal acromion. Healing proximal impacted humeral fracture. The soft tissue structures are unremarkable. Normal visualized pulmonary apex. RAD/Shoulder min 2 Views IMPRESSION: Healing proximal impacted humeral fracture. Electronically Signed: Dveyn Swanosn MD at 15:37 EDT ,
--- NOTE | 2022-04-20 13:42 | RAD_ITS ---
STUDY: X-RAY - PELVIS AND LEFT HIP REASON FOR EXAM: Female, 76 years old. FX TECHNIQUE: XR Hip Unilateral with Pelvis when performed; 2-3 Views COMPARISON: 5.3.22 FINDINGS: There is a non-specific bowel gas pattern. Normal visualized soft tissue structures. Normal bilateral iliac wings, sacroiliac joints and visualized sacrum. Normal bilateral superior and inferior pubic rami. Normal pubic symphysis. Normal bilateral ischial tuberosities. Left IM juan with left intramedullary juan. Stabilization of the intertrochanteric fracture. Normal hip joint. RAD/HIP, UNI W/ Pelvis 2-3 Views IMPRESSION: Left IM juan with left intramedullary juan. Stabilization of the intertrochanteric fracture. Electronically Signed: Devyn Swanson MD at 15:36 EDT ,
--- NOTE | 2022-04-20 13:42 | RAD_ITS ---
STUDY: XR Wrist Min 3 Views REASON FOR EXAM: Female, 76 years old. FX TECHNIQUE: XR Wrist Min 3 Views LEFT COMPARISON: 5.3.22 FINDINGS: Healing impacted distal radial fracture. Nonunion fracture of the ulnar side. There are no acute findings of the radiocarpal articulation. Normal distal radioulnar articulation. Normal carpal bones. Normal carpal articulations.There is demineralization of the radius and ulna. There are no acute findings of the carpometacarpal articulation of the thumb. Normal second through fifth carpometacarpal articulations. There are no acute findings of the visualized metacarpal bones. The soft tissue structures are unremarkable. RAD/Wrist min 3 Views IMPRESSION: Healing impacted distal radial fracture. Nonunion fracture of the ulnar side. Electronically Signed: Devyn Swanson MD at 15:35 EDT ,
== END | disposition home or self-care (01) ==
PROVIDERS: PCP Nurse Practitioner Family; Referring Provider Student in an Organized Health Care Education/Training Program; Visit Provider Student in an Organized Health Care Education/Training Program
DX: S42.325D Nondisplaced transverse fracture of shaft of humerus, left arm, subsequent encounter for fracture with routine healing (principal)
CPT/HCPCS: 73030; 73110; 73502

== ENCOUNTER → 2022-05-04 | Outpatient (CLI) | payer BC, MEDICARE, SELFPAY ==
--- NOTE | 2022-05-04 10:59 | ECHOD_ITS ---
Reason For Study: HEART MURMUR Procedure This was a 2D Doppler, Color Flow transthoracic echocardiogram. The study was technically difficult. Exam performed in department. Left Ventricle Normal LV size. Apical false tendon noted. Left ventricular systolic function is normal. The estimated ejection fraction is 70 %. No evidence for diastolic dysfunction. No regional wall motion abnormalities noted. Right Ventricle Normal RV size. Normal systolic function. Atria Normal left atrium. Normal right atrium. No doppler evidence for ASD. Mitral Valve There is mild mitral annular calcification. Extension of the mitral annular calcification onto the base of the posterior mitral valve leaflet. Mild-Moderate (1-2+) mitral valve insufficiency. Tricuspid Valve Normal tricuspid valve. Mild to moderate (1-2+) tricuspid valve insufficiency. Right ventricular systolic pressure estimated to be 39 mmHg. Aortic Valve Trisinus/trileaflet aortic valve. Mild focal aortic valve calcification. Pulmonic Valve The pulmonic valve is not well visualized. Great Vessels Normal sized aortic root. Calcified aortic root. Pericardium/Pleural No pericardial effusion. MMode/2D Measurements & Calculations LAV(MOD-bp): 37.4 ml LVAd ap4: 19.4 cm2 SV(MOD-sp4): 28.0 ml LAV(MOD-bp) Indexed: 22.8 ml/m2 LVLd ap4: 6.6 cm LAV(MOD-sp2): 37.4 ml EDV(MOD-sp4): 46.1 ml LAV(MOD-sp4): 33.5 ml EDV(sp4-el): 48.2 ml LVAs ap4: 10.1 cm2 LVLs ap4: 5.0 cm ESV(MOD-sp4): 18.0 ml ESV(sp4-el): 17.3 ml EF(MOD-sp4): 60.8 % EF(sp4-el): 64.2 % SV(sp4-el): 31.0 ml LA A4 area: 13.9 cm2 LA dimension(2D): 3.7 cm RA A4 area: 11.3 cm2 Doppler Measurements & Calculations MV E max fantasma: 93.8 cm/sec Lat Peak E' Fantasma: 12.2 cm/sec Med Peak E' Fantasma: 9.9 cm/sec MV A max fantasma: 91.1 cm/sec E/E' lat: 7.7 E/E' med: 9.5 MV E/A: 1.0 Ao V2 max: 206.4 cm/sec LV V1 max: 179.1 cm/sec MR max fantasma: 558.1 cm/sec Ao max P.6 mmHg LV V1 max P.0 mmHg MR max P.6 mmHg Ao V2 mean: 225.7 cm/sec Ao mean P.9 mmHg Ao V2 VTI: 80.5 cm PA V2 max: 96.3 cm/sec TR max fantasma: 299.3 cm/sec TR max P.8 mmHg ECHO/Echo Complete Interpretation Summary The study was technically difficult. Left ventricular systolic function is normal. The estimated ejection fraction is 70 %. Apical false tendon noted. There is mild mitral annular calcification. Extension of the mitral annular calcification onto the base of the posterior mi tral valve leaflet. Mild-Moderate (1-2+) mitral valve insufficiency. Mild to moderate (1-2+) tricuspid valve insufficiency. Mild focal aortic valve calcification. Calcified aortic root. Right ventricular systolic pressure estimated to be 39 mmHg. No evidence for diastolic dysfunction. Ordering Physician: Jeri Peters Referring Physician: Jeri Peters Performed By: Yanely Goff RCS
== END | disposition home or self-care (01) ==
LOC: CVS 10:55
PROVIDERS: PCP Nurse Practitioner Family; Referring Provider Internal Medicine; Visit Provider Internal Medicine
DX: R01.1 Cardiac murmur, unspecified (principal)
CPT/HCPCS: 93306

== ENCOUNTER → 2022-09-04 | Outpatient (CLI) | payer BC, SELFPAY ==
--- NOTE | 2022-09-04 13:19 | BI_ITS ---
MAMMOGRAPHY - BILATERAL SCREENING REASON FOR EXAM: Female, 77 years old. Routine annual screening examination. PERTINENT HISTORY: Non-contributory. TECHNIQUE: Digital bilateral breast andreina (3D mammographic acquisition) in the CC and MLO projections. 2-D mediolateral oblique (MLO) and craniocaudad (CC) views of both breasts were obtained. CAD: Full Field Digital Mammography with Computer Added Detection was performed. COMPARISON: Comparison is made with prior study dated 08/07/2019 and 11/06/2016. FINDINGS: Breast Composition: There are scattered areas of fibroglandular density. There are no dominant masses or suspicious calcifications. No other significant abnormalities are identified. There has been no significant change since the prior study. BI/SCRN MAMM (CAD)W/ANDREINA BILAT IMPRESSION: Stable bilateral screening mammogram. Yearly follow-up mammogram recommended. (A) ASSESSMENT CATEGORY: BIRADS Category 1: Negative. A letter regarding these results will be sent to the patient by the facility within 30 days. Approximately 10% of breast cancers are not detected by mammography. A normal mammogram should not delay biopsy of a clinically suspicious abnormality. [id number] Electronically Signed: Darien Gatica MD at 14:42 EDT ,
--- NOTE | 2022-09-04 13:25 | BD_ITS ---
STUDY: DUAL ENERGY X-RAY ABSORPTIOMETRY / DXA REASON FOR EXAM: Female, 77 years old. 733.00OsteoporosisBONE DENSITY REASON FOR EXAM TECHNIQUE: Bone Mineral Density (BMD) measurements of lumbar spine and right hip were obtained. COMPARISON: Comparison is made with prior study dated 05/24/2020. FINDINGS: Lumbar Spine (L1-L4): g/cm2 (0.721) / T-score (-3.0) / Z-score (-0.5) Findings are suggestive of osteoporosis with a high fracture risk. Right Femur Total: g/cm2 (0.479) / T-score (-3.8) / Z-score (-1.9) Right Femoral Neck: g/cm2 (0.357) / T-score (-4.4) / Z-score (-2.3) The T-Scores on the most recent prior examination were: Lumbar Spine (L1-L4): There has been worsening of bone density since the previous examination. Right Femur Total: which represents a worsening of 14.6%. BD/Dexa Bone Density Study IMPRESSION: The patient is considered osteoporotic as outlined below according to World Bobby Organization (WHO) criteria with a high fracture risk. There has been worsening of bone density since the previous examination. Reference Information: The T-score is the number of standard deviations above or below the standard which is normal for young adults at their peak bone mineral density. The World Health Organization (WHO) interprets the T-scores as follows: Above -1 Normal bone density Between -1 and -2.5 Osteopenia Equal to / or below -2.5 Osteoporosis As a practical clinical guideline, osteopenia may be graded as follows: Mild -1 through -1.5 Moderate -1.6 through -2.0 Severe -2.1 through -2.4 The Z-score is the number of standard deviations above or below age-matched controls. A Z-score of less than -1.5 would be considered abnormal. References: 1. NIH Osteoporosis and Related Bone Diseases www osteo.org 2. International Society for Clinical Densitometry www iscd.org 3. National Osteoporosis Foundation www nof.org Electronically Signed: Darien Gatica MD at 13:29 EDT ,
== END | disposition home or self-care (01) ==
PROVIDERS: PCP Nurse Practitioner Family; Referring Provider Nurse Practitioner Family; Visit Provider Nurse Practitioner Family
DX: M81.0 Age-related osteoporosis without current pathological fracture (principal); Z12.31 Encounter for screening mammogram for malignant neoplasm of breast
CPT/HCPCS: 77063; 77067; 77080

== ENCOUNTER → 2022-10-01 | Outpatient (CLI) | payer BC, SELFPAY ==
[2022-10-01 12:51] VITALS: BP 130/64; PULSE 76; RESP 16; TEMP 36.2; O2SAT 96; BMI 25.7
[2022-10-01] MEDS: DENOSUMAB 60 MG/ML SC (13:03)
== END | disposition home or self-care (01) ==
LOC: MEDOUTP 12:47
PROVIDERS: PCP Nurse Practitioner Family; Referring Provider Nurse Practitioner Family; Visit Provider Nurse Practitioner Family
DX: M81.0 Age-related osteoporosis without current pathological fracture (principal)
CPT/HCPCS: 96372; J0897

== ENCOUNTER 2023-04-01 12:50 | Outpatient (CLI) | payer MEDICARE, SELFPAY ==
[2023-04-01 13:03] VITALS: BP 131/67; PULSE 74; RESP 16; TEMP 36.6; O2SAT 98; BMI 25.4
[2023-04-01] MEDS: DENOSUMAB 60 MG/ML SC (13:05)
== END 2023-04-01 12:51 | disposition home or self-care (01) ==
LOC: MEDOUTP 12:55
PROVIDERS: PCP Nurse Practitioner Family; Referring Provider Nurse Practitioner Family; Visit Provider Nurse Practitioner Family
DX: M81.0 Age-related osteoporosis without current pathological fracture (principal)
CPT/HCPCS: 96372; J0897